=== PATIENT | male | born 1950 | race Caucasian/White ===

== ENCOUNTER 2022-08-10 13:35 | Outpatient (REF) | payer MEDICARE, SELFPAY ==
[2022-08-10 15:34] LABS: Abs Immature Grans 0.01 10^3/uL (0.0-0.06); Absolute Basophil Count 0.04 10^3/uL (0.0-0.2); Absolute Eosinophil Count 0.06 10^3/uL (0.0-0.7); Absolute Lymphocyte Count 1.19 10^3/uL (1.2-3.4); Absolute Monocyte Count 0.37 10^3/uL (0.1-0.8); Absolute Neutrophil Count 3.49 10^3/uL (1.2-6.7); Basophils % 0.8; Eosinophils % 1.2; HCT 37.4 % (40.0-50.0); HGB 12.3 g/dL (13.5-17.5); Immature Grans % 0.2; Lymphocytes % 23.1; MCH 31.6 pg (27.0-33.0); MCHC 32.9 % (32.0-36.0); MCV 96 fL (80-95); MPV 11.9 fL (8.0-11.0); Monocytes % 7.2; Neutrophils % 67.5; Platelet Count 124 10^3/uL (130-400); RBC 3.89 10^6/uL (4.36-5.78); RDW 12.3 % (11.8-14.1); RDW-SD 42.8 fL; WBC 5.16 10^3/uL (4.4-10.8)
[2022-08-10 15:47] LABS: ALT 20 U/L (16-63); AST 26 U/L (15-37); Albumin 4.1 g/dL (3.4-5.0); Alkaline Phosphatase 53 U/L (46-116); Anion Gap 9.3 mmol/L (3-11); BUN 25 mg/dL (7-18); Bilirubin, Total 0.5 mg/dL (0.2-1.0); CO2 26.7 mmol/L (21.0-32.0); CREATININE 1.7 mg/dL (0.70-1.30); Calcium 9.5 mg/dL (8.5-10.1); Chloride 106 mmol/L (98-107); Estimated GFR 42.57 (mL/min/1.73m2); Glucose 118 mg/dL (74-106); Potassium 4.1 mmol/L (3.5-5.1); Sodium 142 mmol/L (136-145); Total Protein 7.5 g/dL (6.4-8.2)
[2022-08-10 17:14] LABS: Bacteria Rare HPF (Negative); Epithelial Cells Few HPF (Negative)
[2022-08-10 17:15] LABS: C & S Indicated? C&S Done As Ordered; Crystals Negative HPF (Negative); Mucus Trace (Negative)
== END 2022-08-10 13:36 | disposition home or self-care (01) ==
LOC: LBN 13:35
PROVIDERS: PCP Internal Medicine; Visit Provider Nurse Practitioner Family
DX: R30.0 Dysuria (principal); R39.89 Other symptoms and signs involving the genitourinary system
CPT/HCPCS: 80053; 81015; 85025; 87086

== ENCOUNTER → 2022-08-11 07:46 | Outpatient (BNVA) | payer MEDICARE, SELFPAY | PROVIDERS: PCP Internal Medicine; Referring Provider Internal Medicine; Visit Provider Nurse Practitioner Gerontology | DX: Z46.6 Encounter for fitting and adjustment of urinary device (principal); R33.8 Other retention of urine | CPT/HCPCS: 51702; 99214 ==

== ENCOUNTER → 2022-08-23 07:55 | Outpatient (BNVA) | payer MEDICARE, SELFPAY | PROVIDERS: PCP Internal Medicine; Visit Provider Nurse Practitioner Gerontology | DX: R33.8 Other retention of urine (principal); Z46.6 Encounter for fitting and adjustment of urinary device; Z96.0 Presence of urogenital implants | CPT/HCPCS: 99213 ==

== ENCOUNTER → 2022-09-20 07:59 | Outpatient (BNVA) | payer MEDICARE, SELFPAY | PROVIDERS: PCP Internal Medicine; Visit Provider Nurse Practitioner Gerontology | DX: R33.8 Other retention of urine (principal) | CPT/HCPCS: 36415; 99212 ==

== ENCOUNTER 2022-09-20 14:29 | Outpatient (REF) | payer MEDICARE, SELFPAY ==
[2022-09-20 22:49] LABS: PSA, Diagnostic 7.1 ng/mL (<=6.5)
== END 2022-09-20 14:30 | disposition home or self-care (01) ==
LOC: LBN 14:29
PROVIDERS: PCP Internal Medicine; Visit Provider Nurse Practitioner Gerontology
DX: N40.1 Benign prostatic hyperplasia with lower urinary tract symptoms (principal); R33.8 Other retention of urine; N13.8 Other obstructive and reflux uropathy
CPT/HCPCS: 84153

== ENCOUNTER 2022-09-22 09:48 | Outpatient (CLI) | payer MEDICARE, SELFPAY ==
--- NOTE | 2022-09-22 07:00 | DI.US_ITS ---
Exam(s) US RENAL EXAM: US RENAL CLINICAL HISTORY: monitoring for hydro,ACUTE URINARY RETENTION,R33.8. TECHNIQUE: Griffin scale, color and spectral Doppler were used. COMPARISON: US RENAL ULTRASOUND (P) from 12/12/2009 FINDINGS: Renal size in cm: Right: 11.8. Left: 11.6. Echogenicity: Normal. Hydronephrosis: No. Cyst or mass: There has been interval increase in size of the simple cyst in the right kidney. It no w measures 4.6 x 3.2 x 4.5 cm. This compares to 3.2 x 2.8 cm. There is also been interval increase in size of the cysts in the left kidney. There is a 1.8 x 1.6 x 1.6 cm simple superior pole cyst. T here is a 3.2 x 2.5 x 2.8 cm simple cyst in the lower pole. No follow-up is recommended. Nephrolithiasis: No. Other findings: None. Bladder:There is diffuse thickening of the wall of the urinary bladder up to 7.5 mm. There are multi ple bladder diverticula seen. There also mobile stones seen within the urinary bladder. Ureteral jets: Right: Not visualized on this examination. Left: Not visualized on this examination. Prevoid vol:207 cc Postvoid vol:The patient perform self catheterization. Prostate: 132 cc Renal color flow: Symmetric and within normal limits. IMPRESSION: 1. Diffuse thickening of the wall and diverticula of the urinary bladder. This likely is secondary t o chronic bladder outlet obstruction secondary to the enlarged prostate gland. Infectious or inflamm atory process cannot be entirely excluded. 2. Enlarged prostate gland. 3. Bilateral simple renal cysts. 4. Multiple urinary bladder stones. DATA REPOSITORY:
== END 2022-09-22 10:08 ==
LOC: DI 09:48
PROVIDERS: PCP Internal Medicine; Visit Provider Nurse Practitioner Gerontology
DX: R33.8 Other retention of urine (principal); N28.1 Cyst of kidney, acquired; N32.89 Other specified disorders of bladder; N32.3 Diverticulum of bladder; N21.0 Calculus in bladder; N40.1 Benign prostatic hyperplasia with lower urinary tract symptoms
CPT/HCPCS: 76770

== ENCOUNTER → 2022-09-23 08:37 | Outpatient (BNVA) | payer MEDICARE, SELFPAY | PROVIDERS: PCP Internal Medicine; Referring Provider Internal Medicine; Visit Provider Nurse Practitioner Gerontology | DX: R33.8 Other retention of urine (principal); R97.20 Elevated prostate specific antigen [PSA] | CPT/HCPCS: 36415; 99214 ==

== ENCOUNTER 2022-09-23 09:07 | Outpatient (REF) | payer MEDICARE, SELFPAY ==
[2022-09-23 11:49] LABS: CREATININE 1.3 mg/dL (0.70-1.30); Estimated GFR 58.73 (mL/min/1.73m2)
== END 2022-09-23 09:08 | disposition home or self-care (01) ==
LOC: LBN 09:07
PROVIDERS: PCP Internal Medicine; Visit Provider Nurse Practitioner Gerontology
DX: R33.8 Other retention of urine (principal); R97.20 Elevated prostate specific antigen [PSA]
CPT/HCPCS: 82565

== ENCOUNTER → 2022-10-05 08:18 | Outpatient (BNVA) | payer MEDICARE, SELFPAY | PROVIDERS: PCP Internal Medicine; Referring Provider Internal Medicine; Visit Provider Nurse Practitioner Gerontology ==

== ENCOUNTER 2022-10-05 09:16 | Outpatient (CLI) | payer MEDICARE, SELFPAY ==
--- NOTE | 2022-10-05 08:45 | DI.US_ITS ---
Exam(s) US SCROTUM EXAM: US SCROTUM CLINICAL HISTORY: Pain,mass to left testicle,acute urinary retention,n50.819,r33.8,r97.20,. TECHNIQUE: Scrotal ultrasound performed using grayscale, color-flow and spectral Doppler analysis. COMPARISON: US RENAL ULTRASOUND (P) from 12/12/2009 FINDINGS: Right testicle: 3.5 by 1.7 x 2.4 cm Left testicle: 3.3 x 1.8 x 3.0 cm Echogenicity: Normal. Contour: Smooth. Mass: None seen. Microlithiasis: None. Hydrocele: None. Varicocele: None. Hernia: No peristalsing bowel loop identified. Epididymis: Head normal bilaterally. Prominence of soft tissues inferior to left testicle with prominent vessels and hyperemia. This cou ld represent focal epididymitis of the tail. No suspicious mass. DOPPLER: Color: Symmetric and uniform, no hyperemia. Duplex: Bilateral testicular arterial waveforms visualized. IMPRESSION: Asymmetric prominence of soft tissues inferior to the left testicle could represent focal lytic epidi dymitis involving the tail. No suspicious mass. No evidence of torsion. DATA REPOSITORY:
== END 2022-10-05 09:36 ==
LOC: DI 09:16
PROVIDERS: PCP Internal Medicine; Visit Provider Nurse Practitioner Gerontology
DX: N50.812 Left testicular pain (principal); R33.8 Other retention of urine; R97.20 Elevated prostate specific antigen [PSA]; N50.89 Other specified disorders of the male genital organs
CPT/HCPCS: 81003; 99214; 76870

== ENCOUNTER 2022-10-05 10:46 | Outpatient (REF) | payer MEDICARE, SELFPAY | END 2022-10-05 10:47 | disposition home or self-care (01) | LOC: LBN 10:46 | PROVIDERS: PCP Internal Medicine; Visit Provider Nurse Practitioner Gerontology | DX: R30.0 Dysuria (principal); R33.8 Other retention of urine; N50.89 Other specified disorders of the male genital organs | CPT/HCPCS: 87077; 87086; 87186 ==

== ENCOUNTER → 2022-11-30 08:57 | Outpatient (BNVA) | payer SELFPAY | PROVIDERS: PCP Internal Medicine; Referring Provider Internal Medicine; Visit Provider Nurse Practitioner Gerontology ==

== ENCOUNTER 2023-02-17 08:54 | Day surgery (SDC) | payer MEDICARE, SELFPAY ==
[2023-02-17] VITALS (11 sets, daily range): BP systolic 82–122; BP diastolic 46–92; PULSE 42–63; RESP 12–26; TEMP 36.2–36.4; O2SAT 98–100; BMI 22.4
[2023-02-17] MEDS: Lactated Ringers 1,000 ML 80 ML IV (09:33)
--- NOTE | 2023-02-17 10:46 | W.ANESPRE ---
General Info Date of Service Date Performed: 02/17/23 Height: 5 ft 9 in Weight: 69.1 kg Body Mass Index (BMI): 22.4 Surgical Procedure: Operation Date: 02/17/23 11:40 Proposed Procedure Side Surgeon p Cystoscopy w/Bladder Stones Removal Homero Connors MD Meds Allergies and Home Medications Allergies Allergy/AdvReac Type Severity Reaction Status Date / Time No Known Allergies Allergy Verified 02/17/23 09:14 Home Medication Medication Instructions Recorded tamsulosin 0.4 mg capsule (Flomax) 0.8 mg PO DAILY #180 caps 08/23/22 Current Visit Medications: Current Medications Generic Name Dose Route Start Last Admin Trade Name Freq PRN Reason Stop Dose Admin Ringer's Solution 1,000 mls @ 80 mls/hr 02/17/23 06:00 02/17/23 09:33 IV 03/18/23 23:59 80 mls/hr INFUSION LYLA Administration Cefazolin Sodium/Dextrose 2 gm in 50 mls @ 100 mls/hr 02/17/23 06:00 Ancef Duplex IVPB 02/17/23 16:00 PREOP LYLA IV Miscellaneous Supplies 1 each 02/17/23 06:00 Iv Access IV 03/18/23 23:59 DIRECTED LYLA Sodium Chloride 0 ml 02/17/23 06:00 Normal Saline Flush 10 Ml Syr IV 03/18/23 23:59 PRN PRN Sodium Chloride 0 ml 02/17/23 06:00 Normal Saline 10 Ml Vial IJ 03/18/23 23:59 DIRECTED PRN Sterile Water 0 ml 02/17/23 06:00 Water,Injection,Sterile 10 Ml Vial IJ 03/18/23 23:59 DIRECTED PRN PFSH Active Problems Active Problems: Problem Status Onset Code Acute urinary retention R33.8 Elevated PSA R97.20 Surgical History Surgical History Hx of endoscopy Tobacco Smoking/Tobacco Use Status: Former Tobacco Use Alcohol Alcohol Intake: former Substance Use Substance use: Never Substance use type: does not use Vital Signs and Lab Results Vital Signs Most Recent Vital Signs in EMR: Most Recent Vital Signs Temp Pulse Resp BP Pulse Ox 36.3 C L 63 16 116/63 99 02/17/23 09:11 02/17/23 09:11 02/17/23 09:11 02/17/23 09:11 02/17/23 09:11 Lab Results Blood Type / Crossmatch: No Data to Display Complete Blood Count: No Data to Display Complete Metabolic Panel: No Data to Display Liver Function Panel: No Data to Display Coagulation Panel: No Data to Display Cardiac Panel: No Data to Display Arterial Blood Gas: No Data to Display Venous Blood Gas: No Data to Display Pancreas Panel: No Data to Display Thyroid Panel: No Data to Display Infectious Disease: No Data to Display Blood Cultures: No Data to Display Toxicology Panel: No Data to Display Anesthesia Assessment and Plan Anesthesia History Personal History: No History of Anesthesia Complications Family History: No Family History of Anesthesia Complications Exercise Tolerance Exercise Tolerance: Metabolic Equivalents>4 Pertinent Negatives Pertinent Negatives: No Major Cardiovascular Symptoms or Complaints, No Major Pulmonary Symptoms or Complaints and No History of CVA/TIA Cardiac & Pulmonary Exam Cardiac Exam: Normal S1/S2 Heart Sounds Pulmonary Exam: Clear Bilateral Breath Sounds Implantable Cardiac Device Does patient have a Pacemaker or an ICD?: No Airway Exam Known Difficult Airway: No Mallampati Class: 2 Mouth Opening: Normal (> 3cm) Thyromental Distance: Greater than 3 cm Neck Range of Motion: Full ROM Neck Circumference: Normal Teeth Condition: Normal Dentition ASA Classification ASA Score: ASA 2 Emergency Case?: No NPO Status NPO Status: NPO Clears >2 hours, Solids >8 hours Anesthesia Plan Resuscitation Status: Full Code Anesthesia Technique: General Anesthesia Airway Planned: Natural Airway Monitors Used: Standard Monitors
--- NOTE | 2023-02-17 10:49 | W.PM.HP.N ---
Date of service: 02/17/23 Time of Service: 10:49 Assessment and Plan Assessment and plan (1) Bladder stones: Status: Acute Assessment and plan: For cystoscopy with holmium laser lithotripsy of bladder stones and stone evacuation. Given the number of stones present, we will likely need to leave an indwelling catheter in place after the procedure. History of Present Illness History of Present Illness Chief Complaint: Bladder stones Narrative: This is a 72-year-old gentleman who developed urinary retention. He has been performing clean intermittent catheterization but has seen gross hematuria at times. He was identified as having an elevated PSA so he was evaluated with a multiparameter prostate MRI. There was a low likelihood of clinically significant prostate cancer, but there are multiple large bladder stones present. He presents now for cystoscopy with holmium laser lithotripsy of his bladder stones. Review of Systems Narrative: No fevers or chills No vision change or dysphasia No diabetes or thyroid No shortness of breath, cough or hemoptysis No chest pain or palpitations No nausea, vomiting, hepatitis, ulcers, jaundice, diarrhea or constipation No seizures, strokes or peripheral neuropathy No bleeding disorders or anemia No gout PFSH All Active Problems (Updated 02/17/23 @ 11:46 by Homero Connors MD) Bladder stones (Acute) Acute urinary retention (Acute) Elevated PSA (Acute) Surgical History Hx of endoscopy Social History Smoking/Tobacco Use Status: Former Tobacco Use Quit Date: 07/04/99 Smoking risk assessment performed?: Yes Alcohol Intake: former Drug use: Never Substance use type: does not use Housing: house Do you feel safe at home: Yes Do you feel safe in your relationship?: Yes Meds Allergies and Home Medications Allergies Allergy/AdvReac Type Severity Reaction Status Date / Time No Known Allergies Allergy Verified 02/17/23 09:14 Home Medications Medication Instructions Recorded Confirmed Type tamsulosin 0.4 mg capsule (Flomax) 0.8 mg PO DAILY #180 caps 08/23/22 02/17/23 Rx Exam Const General: cooperative Neck Neck: supple Resp Effort & Inspection: normal respiratory effort Auscultation: clear to auscultation bilaterally Cardio Rate: regular rate Rhythm: regular rhythm GI Palpation: soft and no masses Neuro General: patient alert, patient awake and patient oriented x3 Results Last Vital Signs Temp 36.3 C L 02/17/23 09:11 Pulse 63 02/17/23 09:11 Resp 16 02/17/23 09:11 BP 116/63 02/17/23 09:11 Pulse Ox 99 02/17/23 09:11 Time Spent Time spent with Patient: <40 minutes Time was spent: other
[2023-02-17] MEDS: ceFAZolin 2 GM/50 ML BAG IVPB (12:30)
--- NOTE | 2023-02-17 14:56 | W.PM.DSUDISC ---
Date of service: 02/17/23 Time of Service: 14:56 Discharge Plan Disposition Condition: Stable Discharge Details Attending Provider: Homero Connors Primary Care Provider: Jaiden Portillo Home Meds and New Rx's Prescriptions: No Action tamsulosin [Flomax] 0.4 mg capsule 0.8 mg PO DAILY Qty: 180 3RF Discharge Instructions Additional Instructions: mortensen to drainage bag - catheter plug to irrigation port my office will contact pt to arrange for repeat cystoscopy, remove residual stone fragments in OR Activity:: Activity as Tolerated Shower/Bathe:: 24 hours Diet:: As Tolerated DS: Diagnosis Discharge Diagnosis (1) Bladder stones: Status: Acute
--- NOTE | 2023-02-17 15:17 | W.PM.OP ---
Date of service: 02/17/23 Time of Service: 15:17 Operative Note Operative Note DATE OF PROCEDURE: 02/17/23 PRE-OP DIAGNOSIS: Bladder stones POST-OP DIAGNOSIS: same PROCEDURE: Cystoscopy, Holmium laser lithotripsy of bladder stones, extraction of bladder stones SURGEON: Homero Connors ANESTHESIA TYPE: General:No Airway Refer to Anesthesia Record ESTIMATED BLOOD LOSS: 100 PATHOLOGY: other (stones for chemical analysis) COMPLICATIONS: None Patient was transported to: PACU Patient's condition: stable Implants: 22 [place] Coude tipped irrigating catheter with 10 cc sterile water in balloon Indications: This is a 72-year-old gentleman who has a history of urinary retention. He performs clean intermittent catheterization. He has had occasional episodes of gross hematuria after catheterization. He has had a renal ultrasound that showed no sign of upper tract disease, but he had multiple large bladder stones. He has been found to have a elevated PSA. He underwent a multiparameter prostate MRI which showed the likelihood of clinically significant prostate cancer was quite low. He presents now for cystoscopy and holmium laser lithotripsy of his bladder stones. Findings: Multiple large bladder stones Bladder heavily trabeculated with multiple diverticuli Procedure Description: The patient was given preoperative IV antibiotics. After successful induction of general anesthesia, he was placed in the dorsal lithotomy position. His genitalia was prepped and draped. 2% Xylocaine jelly was instilled into the urethra to act as a local anesthetic. 22 [place] rigid cystoscope was passed through the urethra into the bladder. The urethra and bladder were inspected with a 30 degree lens. The pendulous, bulbar and membranous urethra was all appeared normal with no strictures. The prostatic urethra showed trilobar enlargement with a moderate median lobe jetting back into the bladder. Once the bladder neck was entered, we are able to see that the bladder was heavily trabeculated there were multiple diverticuli. At the base of the bladder, there were multiple (between 6 and 12) large bladder stones. The stones were larger than the lumen of the cystoscope. We then began treating the stones with a 972 ?m holmium laser fiber. We used a power setting of of 0.8 and a rate of 8. The stones were quite hard to fragment. As the fragmentation occurred, visibility became more difficult. We were able to extract multiple stone fragments and these fragments were sent to pathology for chemical analysis. Multiple additional fragments still remain in the bladder. Because visibility was poor toward the end of the procedure, we elected to stop the procedure, place a Schwartz catheter and make a planned return to the operating room once the edema has subsided. I would expect that the procedure coul be done after a waiting period of 1 to 4 weeks. We filled the bladder with irrigant and removed the cystoscope. We then passed a 22 [place]ian hematuria catheter down through the urethra into the bladder. The catheter balloon was inflated with 10 cc of sterile water. The catheter was hooked to gravity drainage. Continuous bladder irrigation with saline was then begun. The patient tolerated this procedure well with no complications. He was taken to the recovery room in stable condition.
[2023-02-17] MEDS: fentaNYL 100 MCG/2 ML VIAL IVP (16:06)
--- NOTE | 2023-02-17 16:36 | W.ANESPOSTOP ---
Postoperative Evaluation Date, Time and Location Date Performed: 02/17/23 Time Performed: 16:37 Patient Location: Day Surgery Unit Vital Signs Most Recent Imported Vital Signs: Most Recent Vital Signs Temp Pulse Resp BP Pulse Ox 36.2 C L 47 L 26 H 110/92 H 100 02/17/23 16:15 02/17/23 16:15 02/17/23 16:15 02/17/23 16:15 02/17/23 16:15 Pain Score Most Recent Pain Score: Most Recent Pain Score Pain Level 4 02/17/23 16:37 Assessment Mental Status: Awake (Alert & Oriented to Patient Baseline) Airway and Respiratory Function: Patent airway with normal (patient baseline) respiratory exam Cardiovascular Function: Hemodynamically Stable Hydration Status: Adequately Hydrated Nausea & Vomiting: No Nausea or Vomiting Pain: Pain is tolerable per patient Peripheral Nerve Block: Patient did not receive a nerve block Postoperative Comments:: Pt. awake and doing well. Very communicative and calm.
[2023-02-17] MEDS: traMADol 50 MG TAB PO (16:51)
== END 2023-02-17 18:05 | disposition home or self-care (01) ==
PROVIDERS: PCP Internal Medicine; Visit Provider Urology
PROC: 0TJB8ZZ Inspection of Bladder, Via Natural or Artificial Opening Endoscopic (ICD-10-PCS; CPT 52000; principal; 2023-02-17 11:30)
DX: N21.0 Calculus in bladder (principal); R31.0 Gross hematuria; R33.9 Retention of urine, unspecified
CPT/HCPCS: 52318; 82365; J0690; J1100; J1885; J2001; J2405; J2704; J3010

== ENCOUNTER 2023-02-23 21:34 | Emergency (ER) | payer MEDICARE, SELFPAY ==
[2023-02-23] VITALS (74 sets, daily range): BP systolic 55–131; BP diastolic 35–100; PULSE 79–113; RESP 12–31; TEMP 36.8; O2SAT 93–100
--- NOTE | 2023-02-23 21:45 | DI.CT_ITS ---
Exam(s) CT ABDOMEN PELVIS WO EXAM: CT ABDOMEN PELVIS WO CLINICAL HISTORY: s/p lithotripsy, hematuria, dysuria. TECHNIQUE: Imaging Protocol: Axial computed tomography images with coronal and sagittal reformatted images were created and reviewed CONTRAST MATERIAL: Intravenous: none Oral: None COMPARISON: No exams were available for comparison FINDINGS: VISUALIZED LUNG BASES: No nodules nor pleural effusions evident. Small pericardial effusion. ABDOMEN: There is no ascites. LIVER: There are no obvious focal hepatic lesions evident of this noninfused study. GALLBLADDER/BILIARY: No obvious gallbladder pathology. CBD is not dilated. PANCREAS: No evidence of pancreatic mass nor dilatation of the pancreatic duct. SPLEEN: Spleen is not enlarged. No obvious intrasplenic lesions. ADRENALS: There are no significant adrenal masses. KIDNEYS:There is a 4.2 x 3.7 cm benign cyst in the right kidney. No solid renal masses. No calculi n or hydronephrosis the right-side.. Left kidney is significantly hydronephrotic the left ureter is al so dilated. Debris evident in the distal left ureter. Also abundant abnormality in the urinary blad chiquis. There is a Schwartz catheter in place but this is not in the urinary bladder and is instead in the prostatic urethra. There is abundant clot material in the urinary bladder lumen as well as innumera ble calculi in the urinary bladder. ABDOMINAL AORTA: Abdominal aorta is calcified but not enlarged. LYMPH NODES: There is no retroperitoneal nor paraaortic adenopathy. ABDOMINAL WALL: Fat containing left inguinal hernia. GI: There is no evidence of bowel obstruction, free air, nor abscess. PELVIS: LYMPH NODES: There is no intrapelvic nor inguinal adenopathy. GI: No evidence of appendicitis.Left colon and sigmoid diverticuli but no obvious acute diverticuliti s. URINARY BLADDER: Abnormal as above. REPRODUCTIVE: Significantly enlarged prostate gland. A catheter balloon is inflated within the prost atic urethra. OSSEOUS: No significant osseous lesions. Benign intraosseous hemangioma is noted in the right-side o f the L3 vertebral body. No fractures IMPRESSION: 1. The Schwartz catheter including the inflated Schwartz catheter balloon is in the prostatic urethra. The balloon should be deflated and the catheter repositioned into the urinary bladder. 2. There are numerous calculi of different sizes in the urinary bladder lumen as well as large amount of blood and clot material in the urinary bladder (cannot exclude mass). 3. Moderate-severe left-sided hydronephrosis and hydroureter which is related to the above findings. Also calculi in the left kidney. Schwartz catheter needs repositioning. RADIATION DOSE DELIVERED: 581.79mGy.cm Total DLP DATA REPOSITORY: All CT scans at this facility are submitted to the National Radiology Data Registry (NRDR) Dose Index Registry (DIR) with the [employer] ([employer]). RADIATION OPTIMIZATION: All CT scans at this facility use at least one of these dose optimization te chniques: automated exposure control; mA and/or kV adjustment per patient size (includes targeted exa ms where dose is matched to clinical indication); or iterative reconstruction.
--- NOTE | 2023-02-23 22:10 | DI.RAD_ITS ---
Exam(s) XR CHEST 1V IN DI DEPT EXAM: XR CHEST 1V IN DI DEPT CLINICAL HISTORY: hypotension. TECHNIQUE: 2D digital imaging was performed. COMPARISON: No exams were available for comparison FINDINGS: Single AP portable view. Heart size is upper normal. The mediastinum is not widened. There are no infiltrates nor pleural effusions. However, there is possible area of pneumothorax righ t upper lobe region. This may indeed be artifact. IMPRESSION: Possible right-side pneumothorax. Recommend nonportable PA and lateral views when clinically possibl e. First read by [facility]. Final report called by myself to emergency room 02/24/2023 8:45 a.m. DATA REPOSITORY: RADIATION DOSE DELIVERED:
[2023-02-23 22:31] LABS: Abs Immature Grans 0.03 10^3/uL (0.0-0.06); Absolute Basophil Count 0.02 10^3/uL (0.0-0.2); Absolute Eosinophil Count 0.03 10^3/uL (0.0-0.7); Absolute Lymphocyte Count 0.83 10^3/uL (1.2-3.4); Absolute Monocyte Count 0.42 10^3/uL (0.1-0.8); Absolute Neutrophil Count 6.17 10^3/uL (1.2-6.7); Basophils % 0.3; Eosinophils % 0.4; HCT 24.8 % (40.0-50.0); Immature Grans % 0.4; Lymphocytes % 11.1; MCH 30.3 pg (27.0-33.0); MCHC 32.3 % (32.0-36.0); MCV 94 fL (80-95); MPV 11.1 fL (8.0-11.0); Monocytes % 5.6; Neutrophils % 82.2; Platelet Count 156 10^3/uL (130-400); RBC 2.64 10^6/uL (4.36-5.78); RDW-SD 44.6 fL
[2023-02-23 22:34] LABS: Lactate 2.4 mmol/L (0.6-1.4)
--- NOTE | 2023-02-23 22:44 | DI.VRAD_ITS ---
PROCEDURE INFORMATION: Exam: XR Chest Exam date and time: 02/23/2023 10:27 PM Age: 72 years old Clinical indication: Other: Hypotension TECHNIQUE: Imaging protocol: Radiologic exam of the chest. Views: 1 view. COMPARISON: CT ABDOMEN PELVIS WO 02/23/2023 10:21 PM FINDINGS: Lungs: Unremarkable. No consolidation. Pleural spaces: Unremarkable. No pleural effusion. No pneumothorax. Heart/Mediastinum: Mildly tortuous aorta. No cardiomegaly. Bones/joints: Unremarkable. IMPRESSION: No acute findings. Dictated and Authenticated by: Junior Martin MD. Ordering:AMAYA Hester MD
--- NOTE | 2023-02-23 22:46 | DI.VRAD_ITS ---
PROCEDURE INFORMATION: Exam: CT Abdomen And Pelvis Without Contrast Exam date and time: 02/23/2023 10:21 PM Age: 72 years old Clinical indication: Other: S/P lithotripsy, hematuria, dysuria TECHNIQUE: Imaging protocol: Computed tomography of the abdomen and pelvis without contrast. COMPARISON: US SCROTUM 10/05/2022 9:29 AM FINDINGS: Liver: Normal. No mass. Gallbladder and bile ducts: Normal. No calcified stones. No ductal dilation. Pancreas: Normal. No ductal dilation. Spleen: Normal. No splenomegaly. Adrenal glands: Normal. No mass. Kidneys and ureters: Moderate to severe left hydroureteronephrosis. Calcified stone versus vascular calcification image 15 series 2 measuring 7-8 mm. There is debris versus blood layering in the left renal collecting system/pelvis. Right renal simple cysts noted Stomach and bowel: No obstruction. No mucosal thickening. Colonic diverticulosis Appendix: No evidence of appendicitis. Intraperitoneal space: Unremarkable. No free air. No significant fluid collection. Vasculature: Unremarkable. No abdominal aortic aneurysm. Lymph nodes: Unremarkable. No enlarged lymph nodes. Urinary bladder: Schwartz catheter with tip in the bladder. Schwartz catheter balloon projects into the posterior/prostatic urethra Large amount of blood/debris in the bladder and large calcified stones measuring up to 2 cm. Distal right UVJ calculus projecting into the bladder measuring 6 mm Reproductive: Severely enlarged prostate. Bones/joints: Hemangioma at L3. Degenerative changes in the spine No acute fracture. Soft tissues: Unremarkable. IMPRESSION: Schwartz catheter with balloon inflated in the prostatic urethra. Recommend repositioning Large amount of blood and large calculi in the bladder as described. Distal right UVJ calculus as noted Moderate to severe left hydroureteronephrosis and left sided debris/calculi as noted Dictated and Authenticated by: Junior Martin MD. Ordering:AMAYA Hester MD
[2023-02-23 23:08] LABS: ALT 6 U/L (16-63); AST 18 U/L (15-37); Albumin 2.6 g/dL (3.4-5.0); Alkaline Phosphatase 48 U/L (46-116); Anion Gap 7.3 mmol/L (3-11); BUN 29 mg/dL (7-18); Bilirubin, Total 0.3 mg/dL (0.2-1.0); CO2 20.7 mmol/L (21.0-32.0); CREATININE 1.4 mg/dL (0.70-1.30); Calcium 7.9 mg/dL (8.5-10.1); Chloride 106 mmol/L (98-107); Glucose 171 mg/dL (74-106); Potassium 4.2 mmol/L (3.5-5.1); Sodium 134 mmol/L (136-145); Total Protein 5.7 g/dL (6.4-8.2)
[2023-02-23 23:10] LABS: Abs Immature Grans 0.03 10^3/uL (0.0-0.06); Absolute Basophil Count 0.03 10^3/uL (0.0-0.2); Absolute Eosinophil Count 0.01 10^3/uL (0.0-0.7); Absolute Monocyte Count 0.43 10^3/uL (0.1-0.8); Basophils % 0.3; Eosinophils % 0.1; HCT 24.1 % (40.0-50.0); HGB 7.9 g/dL (13.5-17.5); Immature Grans % 0.3; Lymphocytes % 10.5; MCH 30.6 pg (27.0-33.0); MCHC 32.8 % (32.0-36.0); MCV 93 fL (80-95); MPV 10.4 fL (8.0-11.0); Monocytes % 4.1; Neutrophils % 84.7; Platelet Count 156 10^3/uL (130-400); RBC 2.58 10^6/uL (4.36-5.78); RDW 12.9 % (11.8-14.1); RDW-SD 44.2 fL
[2023-02-23] MEDS: PIPERACILLIN/TAZO 3.375 GM in Normal Saline 50 ML IVPB (23:13)
[2023-02-23 23:16] LABS: Procalcitonin < 0.1 ng/mL
--- NOTE | 2023-02-23 23:22 | ED.GENADUL_ITS ---
Discharge Plan Disposition Patient Disposition: Transfer-Acute Inpatient Care Specific Acute Inpt Facility: [facility] Discharge Details Clinical Impression: Acute blood loss anemia, Bladder stones, Shock Primary Care Provider: Jaiden Portillo ED Provider: Hemanth Arriaga Home Meds and New Rx's Prescriptions: No Action tamsulosin [Flomax] 0.4 mg capsule 0.8 mg PO DAILY Qty: 180 3RF Discharge Data Discharge Date/Time-TO BE ENTERED AT DEPARTURE: 02/24/23 01:41 Medical Decision Making <OLEKSANDR Parisi - Last Filed: 02/26/23 18:43> Patient is alert and oriented, he received 1500 cc of NS secondary to a reported blood pressure of 70/40 in the field, will hold additional fluids He is not anticoagulated He is complaining of some suprapubic pressure and gross hematuria afebrile here, his blood pressure is 95/45 on initial assessment Hemoglobin is 8, decreased from 12, blood pressure is maintaining and repeat CBC does not show significant change, 7.9, lactate 2.4 We will continue to monitor vitals and labs and hold blood products at this time I suspect patient has a urinary tract infection and ordered CT scan to evaluate for obstruction, patient has large amount of blood and large calculi in his bladder, he has a distal right UVJ calculus and moderate to severe left hydro ureteral nephrosis and left-sided debris and calculus noted per radiology interpretation and my review I spoke with Dr. Connors who recommends if patient's urine is infected to be transferred to [facility], holding on blood products at this time as patient's blood pressure has been stable His lactate is elevated, I did review his last urinalysis and he is positive for staph so will initiate Zosyn He would likely need transfer for urology intervention and Dr. Connors indicates the likely will need a percutaneous nephrostomy secondary to bladder anatomy 3 way mortensen was replaced, zosyn initated, telemetry no leukocytosis, mild hyponatremia, creatinine 1.4 not significantly changed mild hyperglycemia, no documented hx of diabetes tx of care to Dr Arriaga pending urinalysis and likely transfer <Hemanth Arriaga DO - Last Filed: 02/24/23 01:06> Patient is alert and oriented, he received 1500 cc of NS secondary to a reported blood pressure of 70/40 in the field, will hold additional fluids He is not anticoagulated He is complaining of some suprapubic pressure and gross hematuria afebrile here, his blood pressure is 95/45 on initial assessment Hemoglobin is 8, decreased from 12, blood pressure is maintaining and repeat CBC does not show significant change, 7.9, lactate 2.4 We will continue to monitor vitals and labs and hold blood products at this time I suspect patient has a urinary tract infection and ordered CT scan to evaluate for obstruction, patient has large amount of blood and large calculi in his bladder, he has a distal right UVJ calculus and moderate to severe left hydro ureteral nephrosis and left-sided debris and calculus noted per radiology interpretation and my review I spoke with Dr. Connors who recommends if patient's urine is infected to be transferred to [facility], holding on blood products at this time as patient's blood pressure has been stable His lactate is elevated, I did review his last urinalysis and he is positive for staph so will initiate Zosyn He would likely need transfer for urology intervention and Dr. Connors indicates the likely will need a percutaneous nephrostomy secondary to bladder anatomy 3 way mortensen was replaced, zosyn initated, telemetry no leukocytosis, mild hyponatremia, creatinine 1.4 not significantly changed mild hyperglycemia, no documented hx of diabetes tx of care to Dr Arriaga pending urinalysis and likely transfer Dr. Arriaga's documentation: 1:03 AM Patient was signed out to me by my colleague OLEKSANDR Parisi, please refer to her HPI, physical exam, assessment and plan. At time of signout we are awaiting urinalysis. Upon my reassessment of the patient prior to urinalysis he was demonstrated to have a blood pressure in the high 80s to low 90s. Decision was made to give additional fluid for total of 2 L of normal saline. With the notable stones, hydroureter, hydronephrosis, low blood pressure, and a normal procalcitonin and no white count or fever, I am concerned that symptoms may be secondary to blood loss anemia. Hemoglobin is 7.9, patient's baseline is 12. Order was placed for [address] Connors had already been contacted and recommended transfer to [facility] for nephrostomy tube. I did speak with urology at [facility] and they agree with the plan, and also do recommend continued blood and fluids to manage pressure. I did speak with the ICU Dr. Sandoval, and she agrees to accept the patient for transfer. At time of transfer blood had been started and blood pressure was 100 systolic. Decision was made to hold off on any pressors as blood was beginning to transfuse and pressure had stabilized. Patient had already been given Zosyn for antibacterial coverage. At time of transfer urinalysis did return and shows evidence of just RBCs, no evidence of leuk esterase or nitrates. Patient will be transferred to [facility]. I have extensively reviewed the treatment plan with the patient. I have addressed all patient concerns at this time. I have also discussed the plan with the admitting physician and they agree with the current assessment and plan and have agreed to assume responsibility for the patient. All parties demonstrate verbal understanding and agreement with our assessment and plan at this time. The documentation in this chart was dictated using [employer] dictation software. Please excuse any dictation errors. At time of transfer the patient was reassessed and continued to demonstrate No signs of acute respiratory distress requiring intubation, or rapidly declining mental status. HPI <OLEKSANDR Parisi - Last Filed: 02/26/23 18:43> General Date/Time Provider Initiated Documentation: 02/23/23 21:36 . HPI Narrative: This 72-year-old male presents with report of feeling weak and having blood in his urine with decreased flow from his Mortensen catheter. He is status post lithotripsy on 17 February and had a three-way Mortensen placed at that time, residual large stones per Dr. Connors's note. Patient is not anticoagulated. He states that he has had some suprapubic pressure. He denies any fever but has had chills. He denies any chest pain or shortness of breath. He presents today secondary to blood in his urine and weakness with chills. Has not taken Tylenol since 12:00 today. Related Data Home Medications Medication Instructions Recorded Confirmed tamsulosin 0.4 mg capsule (Flomax) 0.8 mg PO DAILY #180 caps 08/23/22 02/24/23 Previous Rx's Medication Instructions Recorded tamsulosin 0.4 mg capsule (Flomax) 0.8 mg PO DAILY #180 caps 08/23/22 Allergies Allergy/AdvReac Type Severity Reaction Status Date / Time No Known Allergies Allergy Verified 02/17/23 09:14 General Stated Complaint: Urinary YA: 3 PFSH <OLEKSANDR Parisi - Last Filed: 02/26/23 18:43> All Active Problems (Updated 02/24/23 @ 01:06 by Hemanth Arriaga DO) Acute blood loss anemia (Acute) Shock (Acute) Bladder stones (Acute) Acute urinary retention (Acute) Elevated PSA (Acute) Surgical History Hx of endoscopy Social History Smoking/Tobacco Use Status: Former Tobacco Use Quit Date: 07/04/99 Smoking risk assessment performed?: Yes Alcohol Intake: former Drug use: Never Substance use type: does not use Housing: house Do you feel safe at home: Yes Do you feel safe in your relationship?: Yes Course <OLEKSANDR Parisi - Last Filed: 02/26/23 18:43> Vital Signs Vital signs: Vital Signs Pulse 87 02/23/23 21:23 Respiratory Rate 18 02/23/23 21:23 Blood Pressure 95/49 L 02/23/23 21:23 Pulse Oximetry 99 02/23/23 21:23 Temperature 36.8 C 02/23/23 22:52 Temperature Source Tympanic 02/23/23 22:52 Pulse 85 02/23/23 22:49 Respiratory Rate 18 02/23/23 22:50 Blood Pressure 100/50 L 02/23/23 22:49 Pulse Oximetry 95 02/23/23 22:12 Oxygen Delivery Method Room Air 02/23/23 21:23 Oxygen Flow Rate 0 02/23/23 21:23 Lab/Test Results Lab/Test Results: 02/23/23 22:10 Blood Blood Culture - Pending 02/23/23 22:10 Blood Blood Culture - Pending Laboratory Tests Range/Units 02/23/23 02/23/23 02/23/23 22:10 22:10 22:10 WBC (4.4-10.8) 10^3/uL 7.50 RBC (4.36-5.78) 10^6/uL 2.64 L Hgb (13.5-17.5) g/dL 8.0 L Hct (40.0-50.0) % 24.8 L MCV (80-95) fL 94 MCH (27.0-33.0) pg 30.3 MCHC (32.0-36.0) % 32.3 RDW (11.8-14.1) % 13.0 Plt Count (130-400) 10^3/uL 156 MPV (8.0-11.0) fL 11.1 H Immature Gran % 0.4 Neutrophils % 82.2 Lymphocytes % 11.1 Monocytes % 5.6 Eosinophils % 0.4 Basophils % 0.3 Nucleated RBC % (0.0-0.3) % 0.0 Absolute Neutrophils (1.2-6.7) 10^3/uL 6.17 Absolute Lymphocytes (1.2-3.4) 10^3/uL 0.83 L Absolute Monocytes (0.1-0.8) 10^3/uL 0.42 Absolute Eosinophils (0.0-0.7) 10^3/uL 0.03 Absolute Basophils (0.0-0.2) 10^3/uL 0.02 VBG Lactate (0.6-1.4) mmol/L 2.4 H* Sodium (136-145) mmol/L 134 L Potassium (3.5-5.1) mmol/L 4.2 Chloride (98-107) mmol/L 106 Carbon Dioxide (21.0-32.0) mmol/L 20.7 L Anion Gap (3-11) mmol/L 7.3 BUN (7-18) mg/dL 29 H Creatinine (0.70-1.30) mg/dL 1.4 H Est GFR (CKD-EPI 2020) (mL/min/1.73m2) 53.40 Glucose (74-106) mg/dL 171 H Calcium (8.5-10.1) mg/dL 7.9 L Total Bilirubin (0.2-1.0) mg/dL 0.3 AST (15-37) U/L 18 ALT (16-63) U/L 6 L Alkaline Phosphatase (46-116) U/L 48 Total Protein (6.4-8.2) g/dL 5.7 L Albumin (3.4-5.0) g/dL 2.6 L Procalcitonin ng/mL < 0.1 Patient ABO/Rh Antibody Screen Range/Units 02/23/23 02/23/23 22:10 23:05 WBC (4.4-10.8) 10^3/uL 10.50 RBC (4.36-5.78) 10^6/uL 2.58 L Hgb (13.5-17.5) g/dL 7.9 L Hct (40.0-50.0) % 24.1 L MCV (80-95) fL 93 MCH (27.0-33.0) pg 30.6 MCHC (32.0-36.0) % 32.8 RDW (11.8-14.1) % 12.9 Plt Count (130-400) 10^3/uL 156 MPV (8.0-11.0) fL 10.4 Immature Gran % 0.3 Neutrophils % 84.7 Lymphocytes % 10.5 Monocytes % 4.1 Eosinophils % 0.1 Basophils % 0.3 Nucleated RBC % (0.0-0.3) % 0.0 Absolute Neutrophils (1.2-6.7) 10^3/uL 8.90 H Absolute Lymphocytes (1.2-3.4) 10^3/uL 1.10 L Absolute Monocytes (0.1-0.8) 10^3/uL 0.43 Absolute Eosinophils (0.0-0.7) 10^3/uL 0.01 Absolute Basophils (0.0-0.2) 10^3/uL 0.03 VBG Lactate (0.6-1.4) mmol/L Sodium (136-145) mmol/L Potassium (3.5-5.1) mmol/L Chloride (98-107) mmol/L Carbon Dioxide (21.0-32.0) mmol/L Anion Gap (3-11) mmol/L BUN (7-18) mg/dL Creatinine (0.70-1.30) mg/dL Est GFR (CKD-EPI 2020) (mL/min/1.73m2) Glucose (74-106) mg/dL Calcium (8.5-10.1) mg/dL Total Bilirubin (0.2-1.0) mg/dL AST (15-37) U/L ALT (16-63) U/L Alkaline Phosphatase (46-116) U/L Total Protein (6.4-8.2) g/dL Albumin (3.4-5.0) g/dL Procalcitonin ng/mL Patient ABO/Rh A Positive Antibody Screen NEGATIVE <Hemanth Arriaga DO - Last Filed: 02/24/23 01:06> Critical Care Time Critical Care Time: Yes Total Critical Care Time: 30 Attestation: Upon my evaluation, this patient had a high probability of imminent or life- threatening deterioration, which required my direct attention, intervention, and personal management. I have personally provided 45 minutes of critical care time exclusive of time spent on separately billable procedures. Time includes review of laboratory data, radiology results, discussion with consultants, and monitoring for potential decompensation. Interventions were performed as documented. Sign Out <OLEKSANDR Parisi - Last Filed: 02/26/23 18:43> Sign Out Data: Sign Out Comment: pending urinalysis and [facility] consult Last updated by Kacie Alvarado PA at 02/23/23 23:40
[2023-02-23] MEDS: fentaNYL 100 MCG/2 ML VIAL 50 MCG IVP (23:29)
[2023-02-23] MEDS: Normal Saline 500 ML IV (23:45)
[2023-02-23] MEDS: Lidocaine 2% Jelly 11 ML SYR UR (23:54)
[2023-02-24] VITALS (28 sets, daily range): BP systolic 82–112; BP diastolic 46–58; PULSE 72–89; RESP 8–26; TEMP 36.9; O2SAT 90–95
[2023-02-24 00:52] LABS: Bilirubin Negative (Negative); Blood Large (Negative); Clarity Cloudy (Clear); Glucose Negative (Negative); Ketones Negative (Negative); Leukocyte Esterase Negative (Negative); Nitrite Negative (Negative); Urobilinogen 0.2 mg/dL (Up to 0.2)
[2023-02-24 00:59] LABS: C & S Indicated? Yes; RBC >50 HPF (0-2)
--- NOTE | 2023-02-24 08:51 | NUR.NOTE ---
Addendum entered by Kaitlyn Luke 02/24/23 10:17: Xray report with discrepancy faxed to [facility] [address] [place] [address] Rosenda Lechuga request. Original Note: Accessed pt chart to determine disposition of patient Nursing Note:
--- NOTE | 2023-02-24 15:31 | NUR.NOTE ---
At the request of [facility] the radiology reports and urinalysis result were faxed to them @ [phone]. Nursing Note:
--- NOTE | 2023-02-25 12:56 | NUR.NOTE ---
Accessed chart to determine orders for EKG and to determine whether or not one needs to be cancelled. Nursing Note:
== END 2023-02-24 01:41 | disposition short-term general hospital (02) ==
PROVIDERS: Physician Assistant; Emergency Provider Student in an Organized Health Care Education/Training Program; PCP Internal Medicine
DX: R31.9 Hematuria, unspecified (principal); N28.1 Cyst of kidney, acquired; N21.0 Calculus in bladder; D62 Acute posthemorrhagic anemia; Z96.0 Presence of urogenital implants
CPT/HCPCS: 51702; 80053; 84145; 86850; 86900; 86901; 86920; 87040; 96365; 96375; 99291; 71045; 74176; 81003; 81015; 83605; 85025; 87086; J2543; J3010; P9016

== ENCOUNTER → 2023-02-25 07:37 | Outpatient (BNVA) | payer MEDICARE, SELFPAY | PROVIDERS: PCP Internal Medicine; Referring Provider Internal Medicine; Visit Provider Urology ==

== ENCOUNTER → 2023-03-10 14:23 | Outpatient (BNVA) | payer MEDICARE, SELFPAY | PROVIDERS: PCP Internal Medicine; Referring Provider Internal Medicine; Visit Provider Nurse Practitioner Gerontology | DX: R33.8 Other retention of urine (principal); N21.0 Calculus in bladder | CPT/HCPCS: 99214 ==

== ENCOUNTER 2023-03-28 06:06 | Day surgery (SDC) | payer MEDICARE, SELFPAY ==
--- NOTE | 2023-03-28 06:18 | W.ANESPRE ---
General Info Date of Service Date Performed: 03/28/23 Height: 5 ft 8 in Weight: 68.039 kg Body Mass Index (BMI): 22.8 Surgical Procedure: Operation Date: 03/28/23 07:40 Proposed Procedure Side Surgeon p Cystogram Homero Connors MD Meds Allergies and Home Medications Allergies Allergy/AdvReac Type Severity Reaction Status Date / Time No Known Allergies Allergy Verified 03/28/23 06:31 Home Medication Medication Instructions Recorded tamsulosin 0.4 mg capsule (Flomax) 0.8 mg PO DAILY #180 caps 08/23/22 Current Visit Medications: Current Medications Generic Name Dose Route Start Last Admin Trade Name Freq PRN Reason Stop Dose Admin Ringer's Solution 1,000 mls @ 80 mls/hr 03/28/23 06:00 IV 04/24/23 23:59 INFUSION LYLA IV Miscellaneous Supplies 1 each 03/28/23 06:00 Iv Access IV 04/24/23 23:59 DIRECTED LYLA Sodium Chloride 0 ml 03/28/23 06:00 Normal Saline Flush 10 Ml Syr IV 04/24/23 23:59 PRN PRN Sodium Chloride 0 ml 03/28/23 06:00 Normal Saline 10 Ml Vial IJ 04/24/23 23:59 DIRECTED PRN Sterile Water 0 ml 03/28/23 06:00 Water,Injection,Sterile 10 Ml Vial IJ 04/24/23 23:59 DIRECTED PRN Trimethoprim/Sulfamethoxazole 1 tab 03/28/23 06:00 Sulfameth/Trimeth Ds Tab PO 03/28/23 18:00 PREOP LYLA PFSH Active Problems Active Problems: Problem Status Onset Code Acute urinary retention R33.8 Elevated PSA R97.20 Bladder stones N21.0 Surgical History Surgical History Hx of cystoscopy 02/17 [facility]; [facility] [place] 02/25 cystolitholopaxy Hx of endoscopy Tobacco Smoking/Tobacco Use Status: Former Tobacco Use Alcohol Alcohol Intake: former Substance Use Substance use: Never Substance use type: does not use Vital Signs and Lab Results Vital Signs Most Recent Vital Signs in EMR: Temp Pulse Resp BP Pulse Ox 36.6 C 76 20 122/74 100 03/28/23 06:32 03/28/23 06:32 03/28/23 06:32 03/28/23 06:32 03/28/23 06:32 Lab Results Blood Type / Crossmatch: No Data to Display Complete Blood Count: No Data to Display Complete Metabolic Panel: No Data to Display Liver Function Panel: No Data to Display Coagulation Panel: No Data to Display Cardiac Panel: No Data to Display Arterial Blood Gas: No Data to Display Venous Blood Gas: No Data to Display Pancreas Panel: No Data to Display Thyroid Panel: No Data to Display Infectious Disease: No Data to Display Blood Cultures: No Data to Display Toxicology Panel: No Data to Display Anesthesia Assessment and Plan Anesthesia History Personal History: No History of Anesthesia Complications Family History: No Family History of Anesthesia Complications Exercise Tolerance Exercise Tolerance: Metabolic Equivalents>4 Cardiac & Pulmonary Exam Cardiac Exam: Normal S1/S2 Heart Sounds Pulmonary Exam: Clear Bilateral Breath Sounds Implantable Cardiac Device Does patient have a Pacemaker or an ICD?: No Airway Exam Known Difficult Airway: No Mallampati Class: 2 Mouth Opening: Normal (> 3cm) Thyromental Distance: Greater than 3 cm Neck Range of Motion: Full ROM Neck Circumference: Normal Teeth Condition: Normal Dentition ASA Classification ASA Score: ASA 2 Emergency Case?: No NPO Status NPO Status: NPO Clears >2 hours, Solids >8 hours Anesthesia Plan Resuscitation Status: Full Code Anesthesia Technique: General Anesthesia Airway Planned: Natural Airway Monitors Used: Standard Monitors Preoperative Comments:: 72 yo male for cystogram. no changes in health history. Sig PMHx: bladder stones, former smoker, Previous Anes: - prop, natural airway, no issues.
[2023-03-28 06:32] VITALS: BP 122/74; PULSE 76; RESP 20; TEMP 36.6; O2SAT 100
[2023-03-28] MEDS: Sulfameth/Trimeth DS TAB 1 TAB PO (06:45)
--- NOTE | 2023-03-28 06:52 | HPE_ITS ---
Date of service: 03/28/23 Time of Service: 06:52 Assessment and Plan Assessment and plan (1) Bladder stones: Status: Acute Assessment and plan: We will perform his cystogram under fluoroscopy here in the operating room (not available in the x-ray department) to make sure his bladder has healed. We will then plan to remove his catheter. There is still concerns that he may not be able to empty his bladder completely which is probably the etiology of his bladder stones in the first place. History of Present Illness History of Present Illness Chief Complaint: Bladder stones Narrative: This is a 72-year-old gentleman who has a history of hematuria. He was identified as having multiple large bladder stones. We initially attempted to do cystoscopy and holmium laser lithotripsy, but we were unable to clear all of the stones in 1 procedure. We had planned on a return to the operating room when he presented back through the ER with clot retention. He also had left hydronephrosis. He was transferred to an outlying institution. His hydronephrosis resolved, so he did not need a nephrostomy tube, but he did undergo an open cystolithotomy and evacuation of blood clots. He elected not to have a prostatectomy at that time. He was discharged with a catheter in place. He presents now for cystogram to ensure his bladder has healed. Review of Systems Narrative: No fevers or chills No vision change or dysphasia No diabetes or thyroid dysfunction No shortness of breath, cough or hemoptysis No chest pain or palpitations No nausea, vomiting, hepatitis, ulcers, jaundice, diarrhea or constipation No seizures, strokes or peripheral neuropathy No bleeding disorders or anemia No gout PFSH All Active Problems Acute urinary retention (Acute) Elevated PSA (Acute) Bladder stones (Acute) Surgical History Hx of cystoscopy 02/17 [facility]; [facility] [place] [place] 02/25 cystolitholopaxy Hx of endoscopy Social History Smoking/Tobacco Use Status: Former Tobacco Use Quit Date: 07/04/99 Smoking risk assessment performed?: Yes Alcohol Intake: former Drug use: Never Substance use type: does not use Housing: house Do you feel safe at home: Yes Do you feel safe in your relationship?: Yes Meds Allergies and Home Medications Allergies Allergy/AdvReac Type Severity Reaction Status Date / Time No Known Allergies Allergy Verified 03/28/23 06:31 Home Medications Medication Instructions Recorded Confirmed Type tamsulosin 0.4 mg capsule (Flomax) 0.8 mg PO DAILY #180 caps 08/23/22 03/28/23 Rx Exam Const General: cooperative and other (talkative) Neck Neck: supple Resp Effort & Inspection: normal respiratory effort Auscultation: clear to auscultation bilaterally Cardio Rate: regular rate Rhythm: regular rhythm GI Palpation: soft Neuro General: patient alert and patient awake Results Last Vital Signs Temp 36.6 C 03/28/23 06:32 Pulse 76 03/28/23 06:32 Resp 20 03/28/23 06:32 BP 122/74 03/28/23 06:32 Pulse Ox 100 03/28/23 06:32 Time Spent Time spent with Patient: <40 minutes Time was spent: other
[2023-03-28 06:54] VITALS: BMI 22.8
[2023-03-28] MEDS: Lactated Ringers 1,000 ML 80 ML IV (06:55)
--- NOTE | 2023-03-28 07:40 | DI.RAD_ITS ---
Exam(s) XR RETROGRADE IN OR EXAM: XR RETROGRADE IN OR CLINICAL HISTORY: cystogram. TECHNIQUE: 2D digital imaging was performed. COMPARISON: No exams were available for comparison FINDINGS: Fluoroscopy provided during cystogram. Submitted images reveal multi trabeculated bladder with numer ous diverticuli and reflux up the right ureter. See procedure report for details. IMPRESSION: Total fluoroscopy time 9.3 seconds Radiation exposure index/cumulative dose: Ka,r= 1.7460 mGy DATA REPOSITORY: RADIATION DOSE DELIVERED:
--- NOTE | 2023-03-28 07:44 | W.PM.OP ---
Date of service: 03/28/23 Time of Service: 07:44 Operative Note Operative Note DATE OF PROCEDURE: 03/28/23 PRE-OP DIAGNOSIS: Bladder stones POST-OP DIAGNOSIS: same PROCEDURE: cystogram SURGEON: Homero Connors ANESTHESIA TYPE: Local By Surgeon Refer to Anesthesia Record ESTIMATED BLOOD LOSS: 0 PATHOLOGY: none sent Patient was transported to: same day Patient's condition: stable Implants: none Indications: This is a 72-year-old gentleman who has a history of an elevated PSA and bladder stones. He underwent a cystoscopy with holmium laser lithotripsy, but his stone burden was so large that we were unable to clear all of his stones. He then developed clot retention and hydronephrosis. He was transferred to a tertiary care center where he underwent an open cystolithotomy. He was not agreeable to any type of procedure on his prostate or bladder outlet. He did not require placement of a nephrostomy tube. He was discharged with a Schwartz catheter in place. He comes in for cystogram to ensure it is safe to remove his catheter. Findings: Reflux upper right ureter Heavily trabeculated bladder No extravasation Procedure Description: The patient was brought to the operating room on 03/28/2023. He was given a single dose of oral Bactrim. He was placed in the supine position. His Schwartz catheter drainage bag was disconnected and the bladder was gradually filled with Omnipaque under fluoroscopic guidance. AP and oblique films were obtained. The bladder was heavily trabeculated with multiple diverticuli. There was free reflux of contrast up the right ureter to the collecting system. There were no obvious filling defects within the bladder. There was no extravasation of contrast on both filling phase and after the bladder was drained. Having been reassured that the bladder had healed, the catheter balloon was deflated and the catheter was removed. The patient tolerated the procedure well.
--- NOTE | 2023-03-28 07:46 | W.PM.DSUDISC ---
Date of service: 03/28/23 Time of Service: 07:46 Discharge Plan Disposition Patient Disposition: Home Condition: Stable Discharge Details Reason For Visit: cystogram Attending Provider: Homero Connors Primary Care Provider: Jaiden Portillo Home Meds and New Rx's Prescriptions: No Action tamsulosin [Flomax] 0.4 mg capsule 0.8 mg PO DAILY Qty: 180 3RF Discharge Instructions Additional Instructions: followup 4 to 6 weeks for bladder scan Stand Alone Forms: Anesthesia Discharge Inst., [facility] Aleyda Hull ([facility]) Activity:: Activity as Tolerated Shower/Bathe:: 24 hours Diet:: As Tolerated Discharge Orders Discharge Orders: Discharge Order (Routine); Ordered 03/28/23 Ordered By: Homero Connors DS: Diagnosis Discharge Diagnosis (1) Bladder stones: Status: Acute
[2023-03-28 07:51] VITALS: BP 103/62; PULSE 61; RESP 20; TEMP 36.4; O2SAT 95
--- NOTE | 2023-03-28 08:10 | W.ANESPOSTOP ---
Postoperative Evaluation Date, Time and Location Date Performed: 03/28/23 Time Performed: 08:10 Patient Location: Day Surgery Unit Vital Signs Most Recent Imported Vital Signs: Most Recent Vital Signs Temp Pulse Resp BP Pulse Ox 36.4 C L 61 20 103/62 95 03/28/23 07:51 03/28/23 07:51 03/28/23 07:51 03/28/23 07:51 03/28/23 07:51 Pain Score Most Recent Pain Score: Most Recent Pain Score Pain Level 1 03/28/23 07:51 Assessment Mental Status: Awake (Alert & Oriented to Patient Baseline) Airway and Respiratory Function: Patent airway with normal (patient baseline) respiratory exam Cardiovascular Function: Hemodynamically Stable Hydration Status: Adequately Hydrated Nausea & Vomiting: No Nausea or Vomiting Pain: Pt. Denies Any Pain Peripheral Nerve Block: Patient did not receive a nerve block
[2023-03-28 08:16] VITALS: BP 114/69; PULSE 65; RESP 18; TEMP 36.3; O2SAT 100
[2023-03-28] MEDS: Phenazopyridine 200 MG TAB PO (09:42)
== END 2023-03-28 09:42 | disposition home or self-care (01) ==
PROVIDERS: PCP Internal Medicine; Visit Provider Urology
PROC: 0TJB8ZZ Inspection of Bladder, Via Natural or Artificial Opening Endoscopic (ICD-10-PCS; CPT 52000; principal; 2023-03-28 07:30)
DX: N21.0 Calculus in bladder (principal); N13.70 Vesicoureteral-reflux, unspecified; N32.89 Other specified disorders of bladder; N32.3 Diverticulum of bladder
CPT/HCPCS: 51600; 74420; J2001; J2405

== ENCOUNTER → 2023-05-04 09:35 | Outpatient (BNVA) | payer MEDICARE, SELFPAY | PROVIDERS: PCP Internal Medicine; Referring Provider Internal Medicine; Visit Provider Nurse Practitioner Gerontology | DX: R33.8 Other retention of urine (principal) | CPT/HCPCS: 51798; 99214 ==

== ENCOUNTER 2023-06-16 17:34 | Outpatient (REF) | payer MEDICARE, SELFPAY ==
[2023-06-16 18:17] LABS: Bilirubin Negative (Negative); Blood Moderate (Negative); Clarity Sl Cloudy (Clear); Glucose Negative (Negative); Ketones Negative (Negative); Leukocyte Esterase Large (Negative); Nitrite Positive (Negative); Specific Gravity 1.015 (1.005-1.025); Urobilinogen 0.2 mg/dL (Up to 0.2)
[2023-06-16 18:28] LABS: Bacteria Few HPF (Negative); C & S Indicated? C&S Done As Ordered; Casts Negative LPF (Negative); Crystals Negative HPF (Negative); Epithelial Cells Negative HPF (Negative); Mucus Negative (Negative); WBC 20-50 HPF (0-5)
== END 2023-06-16 17:35 | disposition home or self-care (01) ==
LOC: LBN 17:34
PROVIDERS: PCP Internal Medicine; Visit Provider Urology
DX: R31.9 Hematuria, unspecified (principal)
CPT/HCPCS: 87077; 81003; 81015; 87086; 87186

== ENCOUNTER 2023-11-24 10:16 | Emergency (ER) | payer MEDICARE, SELFPAY ==
[2023-11-24 10:18] VITALS: BP 150/88; PULSE 70; RESP 18; TEMP 37; O2SAT 99
[2023-11-24 10:29] VITALS: BP 150/88; PULSE 70; RESP 18; TEMP 37; O2SAT 99
--- NOTE | 2023-11-24 10:40 | ED.GENADUL_ITS ---
Discharge Plan Disposition Patient Disposition: Home Discharge Details Clinical Impression: Acute UTI Primary Care Provider: Jaiden Portillo ED Provider: Kacie Alvarado Home Meds and New Rx's Prescriptions: New cefpodoxime 200 mg tablet 200 mg PO Q12H Qty: 20 0RF Rx Instructions: must administer with a meal/food Continued tamsulosin [Flomax] 0.4 mg capsule 0.4 mg PO DAILY Qty: 90 3RF Discharge Instructions Instructions: Urinary Tract Infection in Men (ED) Additional Instructions: Take antibiotic as prescribed Yogurt daily while on antibiotics Please follow-up with your primary care physician in 1 week for reassessment should your symptoms persist Should you have worsening symptoms including fever, nausea, back pain please return immediately for reassessment Referrals: Jaiden Portillo MD [Primary Care Provider] - HPI General Date/Time Provider Initiated Documentation: 11/24/23 10:25 . HPI Narrative: 73-year-old male with history of urinary retention, straight cath to assist with urination presents with report of dysuria past medical conversation some intermittent blood in his urine. Denies any fever or chills. Denies any back pain. Denies any nausea or vomiting. Denies any malaise Related Data Home Medications Medication Instructions Recorded Confirmed tamsulosin 0.4 mg capsule (Flomax) 0.4 mg PO DAILY #90 caps 09/15/23 11/24/23 cefpodoxime 200 mg tablet 200 mg PO Q12H #20 tabs 11/24/23 Previous Rx's Medication Instructions Recorded tamsulosin 0.4 mg capsule (Flomax) 0.4 mg PO DAILY #90 caps 09/15/23 cefpodoxime 200 mg tablet 200 mg PO Q12H #20 tabs 11/24/23 Allergies Allergy/AdvReac Type Severity Reaction Status Date / Time No Known Allergies Allergy Verified 11/24/23 10:22 General Stated Complaint: Urinary YA: 3 Exam Narrative Exam Narrative: Alert and oriented 73-year-old gentleman, cardiac rate rhythm regular, no respiratory distress, no CVA tenderness, no abdominal tenderness, alert and oriented x 3 Course Vital Signs Vital signs: Vital Signs Temperature 37.0 C 11/24/23 10:18 Pulse 70 11/24/23 10:18 Respiratory Rate 18 11/24/23 10:18 Blood Pressure 150/88 H 11/24/23 10:18 Pulse Oximetry 99 05/23/24 10:18 Temperature 37.0 C 11/24/23 10:29 Temperature Source Skin 11/24/23 10:29 Pulse 70 11/24/23 10:29 Respiratory Rate 18 11/24/23 10:29 Respiratory Effort Normal 11/24/23 10:21 Blood Pressure 150/88 H 11/24/23 10:29 Blood Pressure Position Sitting 11/24/23 10:29 Pulse Oximetry 99 11/24/23 10:29 Oxygen Delivery Method Room Air 11/24/23 10:29 Oxygen Flow Rate 0 11/24/23 10:29 Pain Level 1 11/24/23 10:29 Medical Decision Making 73-year-old male who at baseline straight catheterizes himself presents with report of urinary symptoms. Patient is alert, oriented, benign exam. Patient has stable vitals and assessment. Urinalysis is concerning for urinary tract infection. There is no evidence clinically of pyelonephritis. Given that patient self catheterizes himself, he is at risk for broad-spectrum bacteria. I will initiate cefpodoxime 2 times daily for 10 days. His urine will be sent for culture. He is able to self cath without difficulty here. Return precautions reviewed and patient expressed understanding, discharged home in stable condition with stable vitals Quality:SDOH Health Related Social Needs: No Data to Display PFSH All Active Problems (Updated 11/24/23 @ 11:24 by OLEKSANDR Parisi) Acute UTI (Acute) Acute urinary retention (Acute) Elevated PSA (Acute) Bladder stones (Acute) Surgical History Hx of cystoscopy 02/17 [facility]; [facility] [place] 02/25 cystolitholopaxy Hx of endoscopy Social History Smoking/Tobacco Use Status: Former Tobacco Use Quit Date: 07/04/99 Smoking risk assessment performed?: Yes Alcohol Intake: former Drug use: Never Substance use type: does not use Housing: house Do you feel safe at home: Yes Do you feel safe in your relationship?: Yes
[2023-11-24 10:58] LABS: Bilirubin Negative (Negative); Blood Large (Negative); Clarity Cloudy (Clear); Glucose Negative (Negative); Ketones Negative (Negative); Leukocyte Esterase Large (Negative); Nitrite Positive (Negative); Specific Gravity 1.015 (1.005-1.025); Urobilinogen 0.2 mg/dL (Up to 0.2)
[2023-11-24 11:07] LABS: Bacteria Many HPF (Negative); C & S Indicated? Yes; Casts Negative LPF (Negative); Crystals Negative HPF (Negative); Epithelial Cells Rare HPF (Negative); Mucus Trace (Negative); RBC >50 HPF (0-2); WBC 20-50 HPF (0-5)
== END 2023-11-24 11:46 | disposition home or self-care (01) ==
LOC: ER 11:49
PROVIDERS: Emergency Provider Physician Assistant; PCP Internal Medicine
DX: N39.0 Urinary tract infection, site not specified (principal); R31.0 Gross hematuria; R30.0 Dysuria
CPT/HCPCS: 87077; 99283; 81003; 81015; 87086; 87186

== ENCOUNTER → 2023-12-27 13:50 | Outpatient (BNVA) | payer MEDICARE, SELFPAY | PROVIDERS: PCP Internal Medicine; Referring Provider Internal Medicine; Visit Provider Nurse Practitioner Gerontology | DX: N40.1 Benign prostatic hyperplasia with lower urinary tract symptoms (principal); R33.8 Other retention of urine | CPT/HCPCS: 51798; 99214 ==

== ENCOUNTER 2024-01-01 18:17 | Emergency (ER) | payer MEDICARE, SELFPAY ==
[2024-01-01 18:20] VITALS: BP 134/73; PULSE 84; RESP 18; O2SAT 97
[2024-01-01 20:18] LABS: Bilirubin Negative (Negative); Blood Moderate (Negative); Clarity Clear (Clear); Glucose Negative (Negative); Ketones Negative (Negative); Leukocyte Esterase Small (Negative); Nitrite Positive (Negative); Urobilinogen 0.2 mg/dL (Up to 0.2); pH 5.5 (5-8)
[2024-01-01 20:24] LABS: Bacteria Moderate HPF (Negative); C & S Indicated? Yes; Crystals Negative HPF (Negative); Epithelial Cells Rare HPF (Negative); Mucus Negative (Negative)
--- NOTE | 2024-01-01 20:39 | ED.GENADUL_ITS ---
Discharge Plan Disposition Patient Disposition: Home Condition: Improving Discharge Details Clinical Impression: UTI (urinary tract infection) Primary Care Provider: Jaiden Portillo ED Provider: Chava Zavala Home Meds and New Rx's Prescriptions: New cefpodoxime 200 mg tablet 200 mg PO BID 7 Days Qty: 14 0RF Rx Instructions: must administer with a meal/food No Action tamsulosin [Flomax] 0.4 mg capsule 0.8 mg PO DAILY Qty: 180 3RF Rx Instructions: Note increase dosage. Take after supper meal Discharge Instructions Instructions: Urinary Tract Infection, Adult ED HPI General Date/Time Provider Initiated Documentation: 01/01/24 19:47 . HPI Narrative: 73-year-old male history of enlarged prostate, chronically self catheterizes, recurrent UTIs, presents with dysuria and intermittent hematuria, denies fevers chills nausea vomiting, denies back pain Related Data Home Medications Medication Instructions Recorded Confirmed tamsulosin 0.4 mg capsule (Flomax) 0.8 mg (2 x 0.4 mg) PO DAILY #180 12/27/23 01/01/24 caps cefpodoxime 200 mg tablet 200 mg PO BID 7 days #14 tabs 01/01/24 Previous Rx's Medication Instructions Recorded tamsulosin 0.4 mg capsule (Flomax) 0.8 mg (2 x 0.4 mg) PO DAILY #180 12/27/23 caps cefpodoxime 200 mg tablet 200 mg PO BID 7 days #14 tabs 01/01/24 Allergies Allergy/AdvReac Type Severity Reaction Status Date / Time No Known Allergies Allergy Verified 01/01/24 18:22 General Stated Complaint: Urinary YA: 4 Review of Systems Narrative: Review of Systems Constitutional: negative Eyes: negative ENT: negative Cardiovascular: negative Respiratory: negative Gastrointestinal: negative : Dysuria, hematuria Musculoskeletal: negative Skin: negative Neurologic: negative Psych: negative Exam Narrative Exam Narrative: Physical Examination General: alert, awake, cooperative, resting comfortably, no acute distress HEENT: normocephalic, atraumatic; PERRL, EOM intact, conjunctiva normal; no nasal discharge; moist mucous membranes, oral and pharyngeal mucosa normal, tolerating secretions Neck: supple, trachea midline; full ROM Chest: normal to inspection Respiratory: normal respiratory effort, speaking in full sentences GI: abdomen soft, non-tender, non-distended; no palpable mass or hepatosplenomegaly Skin: no lesions, rashes or trauma appreciated Neuro: AAOx3, normal speech, moving all extremities Psych: Appropriate mood and affect Course Vital Signs Vital signs: Vital Signs Pulse 84 01/01/24 18:20 Respiratory Rate 18 01/01/24 18:20 Blood Pressure 134/73 01/01/24 18:20 Pulse Oximetry 97 01/01/24 18:20 Pulse 84 01/01/24 18:20 Respiratory Rate 18 01/01/24 18:20 Blood Pressure 134/73 01/01/24 18:20 Pulse Oximetry 97 01/01/24 18:20 Oxygen Delivery Method Room Air 01/01/24 18:20 Oxygen Flow Rate 0 01/01/24 18:20 Pain Level 0 01/01/24 19:51 Lab/Test Results Lab/Test Results: 01/01/24 20:06 Urine - Reflex from Ua Urine Culture - Pending Laboratory Tests Range/Units 01/01/24 20:06 Urine Color (Yellow) Yellow Urine Clarity (Clear) Clear Urine pH (5-8) 5.5 Ur Specific [place] (1.005-1.025) 1.010 Urine Protein (Neg-Trace) mg/dL Negative Urine Ketones (Negative) mg/dL Negative Urine Blood (Negative) Moderate H Urine Nitrite (Negative) Positive H Urine Bilirubin (Negative) Negative Urine Urobilinogen (Up to 0.2) mg/dL 0.2 Ur Leukocyte Esterase (Negative) Small H Urine RBC (0-2) HPF 10-20 H Urine WBC (0-5) HPF 10-20 H Ur Epithelial Cells (Negative) HPF Rare Urine Crystals (Negative) HPF Negative Urine Bacteria (Negative) HPF Moderate Urine Mucus (Negative) Negative Ur Culture Indicated? Yes Urine Glucose (Negative) mg/dL Negative Medical Decision Making 73-year-old male history of enlarged prostate, chronically self catheterizes, frequent UTIs presents with dysuria and some hematuria over the last couple of days denies flank pain nausea vomiting fevers or chills nontoxic resting comfortably UA consistent with UTI. Lower suspicion for nephrolithiasis lower suspicion for pyelonephritis given history and physical. Will start empiric cefpodoxime, home care instructions and return precautions given Quality:SDOH Health Related Social Needs: No Data to Display PFSH All Active Problems (Updated 01/01/24 @ 20:40 by Chava Zavala MD) UTI (urinary tract infection) (Acute) Incomplete emptying of bladder due to benign prostatic hyperplasia (Acute) Acute urinary retention (Acute) Elevated PSA (Acute) Bladder stones (Acute) Surgical History [place] of [place] 02[place] [facility] [facility] [place] [facility] [place]olith[place] Hx of endoscopy Social History Smoking/Tobacco Use Status: Former Tobacco Use Quit Date: 07/04/99 Smoking risk assessment performed?: Yes Alcohol Intake: former Drug use: Never Substance use type: does not use Housing: house Do you feel safe at home: Yes Do you feel safe in your relationship?: Yes
[2024-01-01] MEDS: Cefpodoxime 200 MG TAB PO (20:41)
== END 2024-01-01 20:45 | disposition home or self-care (01) ==
PROVIDERS: Emergency Provider Emergency Medicine; PCP Internal Medicine
DX: N39.0 Urinary tract infection, site not specified (principal)
CPT/HCPCS: 87077; 99283; 81003; 81015; 87086; 87186; 99284

== ENCOUNTER 2024-01-10 14:36 | Emergency (ER) | payer MEDICARE, SELFPAY ==
[2024-01-10 14:37] VITALS: BP 152/78; PULSE 74; RESP 17; TEMP 36.8; O2SAT 98
[2024-01-10 14:50] VITALS: BP 138/65; PULSE 70; RESP 16; TEMP 37.2; O2SAT 95
--- NOTE | 2024-01-10 15:14 | W.ED.GENAD ---
Discharge Plan Disposition Patient Disposition: Home Condition: Stable Discharge Details Clinical Impression: UTI (urinary tract infection) Primary Care Provider: Jaiden Portillo ED Provider: Chava Zavala Home Meds and New Rx's Prescriptions: New levofloxacin 750 mg tablet 750 mg PO DAILY 10 Days Qty: 10 0RF No Action tamsulosin [Flomax] 0.4 mg capsule 0.8 mg PO DAILY Qty: 180 3RF Rx Instructions: Note increase dosage. Take after supper meal Discharge Instructions Instructions: Urinary Tract Infection, Adult ED Additional Instructions: Please follow-up with urology team and primary care. Return to the emergency department for any worsening symptoms HPI General Date/Time Provider Initiated Documentation: 01/10/24 14:45. HPI Narrative: 73-year-old male history of bladder stones BPH, chronic self cathing chronic recurrent UTIs, presents with some blood in his urine despite recently completing course of antibiotics for presumptive UTI. Denies fevers chills nausea vomiting or back pain. Related Data Home Medications Medication Instructions Recorded Confirmed tamsulosin 0.4 mg capsule (Flomax) 0.8 mg (2 x 0.4 mg) PO DAILY #180 12/27/23 01/01/24 caps levofloxacin 750 mg tablet 750 mg PO DAILY 10 days #10 tabs 01/10/24 Previous Rx's Medication Instructions Recorded tamsulosin 0.4 mg capsule (Flomax) 0.8 mg (2 x 0.4 mg) PO DAILY #180 12/27/23 caps levofloxacin 750 mg tablet 750 mg PO DAILY 10 days #10 tabs 01/10/24 Allergies Allergy/AdvReac Type Severity Reaction Status Date / Time No Known Allergies Allergy Verified 01/01/24 18:22 General Stated Complaint: Urinary YA: 4 Review of Systems Narrative: Review of Systems Constitutional: negative Eyes: negative ENT: negative Cardiovascular: negative Respiratory: negative Gastrointestinal: negative : Hematuria Musculoskeletal: negative Skin: negative Neurologic: negative Psych: negative Exam Narrative Exam Narrative: Physical Examination General: alert, awake, cooperative, resting comfortably, no acute distress HEENT: normocephalic, atraumatic; PERRL, EOM intact, conjunctiva normal; no nasal discharge; moist mucous membranes, oral and pharyngeal mucosa normal, tolerating secretions Neck: supple, trachea midline; full ROM Chest: normal to inspection Respiratory: normal respiratory effort, speaking in full sentences, clear to auscultation, no wheezing, rales or rhonchi Cardiac: regular rate, regular rhythm, S1S2 intact, no murmurs rubs or gallops GI: abdomen soft, non-tender, non-distended; no palpable mass or hepatosplenomegaly Skin: no lesions, rashes or trauma appreciated Neuro: AAOx3, normal speech, moving all extremities Course Vital Signs Vital signs: Vital Signs Temperature 36.8 C 01/10/24 14:37 Pulse 74 01/10/24 14:37 Respiratory Rate 17 01/10/24 14:37 Blood Pressure 152/78 H 01/10/24 14:37 Pulse Oximetry 98 01/10/24 14:37 Temperature 37.2 C 01/10/24 14:50 Temperature Source Temporal Artery Scan 01/10/24 14:50 Pulse 70 01/10/24 14:50 Respiratory Rate 16 01/10/24 14:50 Respiratory Effort Normal 01/10/24 14:42 Blood Pressure 138/65 01/10/24 14:50 Blood Pressure Position Sitting 01/10/24 14:50 Pulse Oximetry 95 01/10/24 14:50 Oxygen Delivery Method Room Air 01/10/24 14:50 Pain Level 2 01/10/24 14:50 Medical Decision Making 73-year-old male history of BPH bladder stones, recurrent UTIs, home self catheterization, presents with hematuria, denies back pain fevers chills nausea vomiting or abdominal pain, recently completed course of cefpodoxime. Consider UTI versus bladder mass versus prostatic malignancy lower suspicion for prostatitis or pyelonephritis given history and physical. No evidence of urinary outflow obstruction. Patient will self catheter urinalysis here in department, will encourage close follow-up with urology to consider cystoscopy 16: 42 evidence of recurrent UTI, will start levofloxacin, will provide referral for urology follow-up. Home care instructions and return precautions Quality:SDOH Health Related Social Needs: No Data to Display PFSH All Active Problems (Updated 01/10/24 @ 16:42 by Chava Zavala MD) UTI (urinary tract infection) (Acute) Incomplete emptying of bladder due to benign prostatic hyperplasia (Acute) Acute urinary retention (Acute) Elevated PSA (Acute) Bladder stones (Acute) Surgical History Hx of cystoscopy 02/17 [facility] [facility] [place] cystolitholopaxy Hx of endoscopy Social History Smoking/Tobacco Use Status: Former Tobacco Use Quit Date: 07/04/99 Smoking risk assessment performed?: Yes Alcohol Intake: former Drug use: Never Substance use type: does not use Housing: house Do you feel safe at home: Yes Do you feel safe in your relationship?: Yes
[2024-01-10 15:53] LABS: Bilirubin Negative (Negative); Blood Moderate (Negative); Clarity Sl Cloudy (Clear); Glucose Negative (Negative); Ketones Negative (Negative); Leukocyte Esterase Moderate (Negative); Nitrite Positive (Negative); Urobilinogen 0.2 mg/dL (Up to 0.2)
[2024-01-10 16:14] LABS: Bacteria Moderate HPF (Negative); C & S Indicated? Yes; Casts Negative LPF (Negative); Crystals Negative HPF (Negative); Epithelial Cells Rare HPF (Negative); Mucus Negative (Negative); RBC 20-50 HPF (0-2); WBC >50 HPF (0-5)
[2024-01-10] MEDS: levoFLOXacin 500 MG, levoFLOXacin 250 MG 750 MG PO (16:27)
== END 2024-01-10 16:55 | disposition home or self-care (01) ==
PROVIDERS: Emergency Provider Emergency Medicine; PCP Internal Medicine
DX: N39.0 Urinary tract infection, site not specified (principal); Z87.440 Personal history of urinary (tract) infections
CPT/HCPCS: 87077; 99283; 81003; 81015; 87086; 87186; 99284

== ENCOUNTER 2024-01-27 14:19 | Emergency (ER) | payer MEDICARE, SELFPAY ==
[2024-01-27 14:28] VITALS: BP 126/71; PULSE 66; RESP 16; TEMP 37.1; O2SAT 97
[2024-01-27 16:13] LABS: Bilirubin Negative (Negative); Blood Small (Negative); Clarity Sl Cloudy (Clear); Glucose Negative (Negative); Ketones Negative (Negative); Leukocyte Esterase Moderate (Negative); Nitrite Negative (Negative); Specific Gravity 1.015 (1.005-1.025); Urobilinogen 0.2 mg/dL (Up to 0.2)
[2024-01-27 16:27] LABS: Bacteria Rare HPF (Negative); C & S Indicated? C&S Done As Ordered; Crystals Negative HPF (Negative); Epithelial Cells Rare HPF (Negative); Mucus Negative (Negative); Other Cells Rare Transitional (Negative); WBC 20-50 HPF (0-5)
--- NOTE | 2024-01-27 16:29 | ED.GENADUL_ITS ---
Discharge Plan Disposition Patient Disposition: Home Condition: Stable Discharge Details Clinical Impression: Complicated UTI (urinary tract infection) Primary Care Provider: Unknown,Unknown ED Provider: Bladimir Pollard Home Meds and New Rx's Prescriptions: New sulfamethoxazole-trimethoprim [Bactrim] 400-80 mg tablet 1 tab PO BID Qty: 19 0RF Continued tamsulosin [Flomax] 0.4 mg capsule 0.8 mg PO DAILY Qty: 180 3RF Rx Instructions: Note increase dosage. Take after supper meal Discharge Instructions Instructions: Urinary Tract Infection, Adult ED Additional Instructions: Please take full course of antibiotic as prescribed. Please follow-up with urology next week. Please contact your primary care physician to arrange follow-up. Return to the ER immediately for any worsening or new concerning symptoms. Referrals: [facility] [Provider Group] HPI General Mode of arrival: ambulatory . Date/Time Provider Initiated Documentation: 01/27/24 14:46 . Limitations to Documentation: no limitations . Information obtained by: patient . HPI Narrative: 73-year-old male with history of urinary retention, self catheterizes, recent urinary tract infection, seen here on 01/10/2024, had urine culture growing Citrobacter freundii resistant to multiple antibiotics, treated with Levaquin for 10 days, noted symptom improvement, now with hematuria today. Patient notes some mild discomfort in his bladder noting it feels irritated. No associated fever. Related Data Home Medications ?Medication ?Instructions ?Recorded ?Confirmed tamsulosin 0.4 mg capsule (Flomax) 0.8 mg (2 x 0.4 mg) PO DAILY #180 12/27/23 01/27/24 caps sulfamethoxazole 400 1 tab PO BID #19 tabs 01/27/24 mg-trimethoprim 80 mg tablet (Bactrim) Previous Rx's ?Medication ?Instructions ?Recorded tamsulosin 0.4 mg capsule (Flomax) 0.8 mg (2 x 0.4 mg) PO DAILY #180 12/27/23 caps sulfamethoxazole 400 1 tab PO BID #19 tabs 01/27/24 mg-trimethoprim 80 mg tablet (Bactrim) Allergies Allergy/AdvReac Type Severity Reaction Status Date / Time No Known Allergies Allergy Verified 01/27/24 14:30 General Stated Complaint: Urinary YA: 3 Review of Systems All systems reviewed & are unremarkable except as noted in HPI and below Constitutional Constitutional: Denies fever(s) Genitourinary Genitourinary: Reports as per HPI Exam Const General: cooperative and no acute distress HENMT Mouth: moist mucous membranes Resp Auscultation: clear to auscultation bilaterally, no rales, no rhonchi and no wheezes Cardio Rate: regular rate and not tachycardic Rhythm: regular rhythm GI Palpation: soft, not firm, no guarding, no masses, not rigid and nontender Course Vital Signs Vital signs: Vital Signs Temperature 37.1 C 01/27/24 14:28 Pulse 66 01/27/24 14:28 Respiratory Rate 16 01/27/24 14:28 Blood Pressure 126/71 01/27/24 14:28 Pulse Oximetry 97 01/27/24 14:28 Temperature 37.1 C 01/27/24 14:28 Pulse 66 01/27/24 14:28 Respiratory Rate 16 01/27/24 14:28 Respiratory Effort Normal, Non-Labored 01/27/24 14:31 Blood Pressure 126/71 01/27/24 14:28 Blood Pressure Position Sitting 01/27/24 14:28 Pulse Oximetry 97 01/27/24 14:28 Oxygen Delivery Method Room Air 01/27/24 14:28 Oxygen Flow Rate 0 01/27/24 14:28 Lab/Test Results Lab/Test Results: 01/27/24 15:25 Urine - Bladder Aspirate Urine Culture - Pending Laboratory Tests Range/Units 01/27/24 15:25 Urine Color (Yellow) Yellow Urine Clarity (Clear) Sl Cloudy Urine pH (5-8) 7.0 Ur Specific [place] (1.005-1.025) 1.015 Urine Protein (Neg-Trace) mg/dL Negative Urine Ketones (Negative) mg/dL Negative Urine Blood (Negative) Small H Urine Nitrite (Negative) Negative Urine Bilirubin (Negative) Negative Urine Urobilinogen (Up to 0.2) mg/dL 0.2 Ur Leukocyte Esterase (Negative) Moderate H Urine RBC (0-2) HPF 10-20 H Urine WBC (0-5) HPF 20-50 H Ur Epithelial Cells (Negative) HPF Rare Urine Crystals (Negative) HPF Negative Urine Bacteria (Negative) HPF Rare Urine Mucus (Negative) Negative Urine Other (Negative) Rare Transitional Ur Culture Indicated? C&S Done As Ordered Urine Glucose (Negative) mg/dL Negative Medical Decision Making 73-year-old male history of urinary retention, self catherizes, recent UTI, cultures 01/09 growing Citrobacter freundii. Patient was treated with full 10-day course of Levaquin. Patient now with recurrent symptoms including bladder irritation and hematuria. Urinalysis reviewed: Hematuria and leukouria noted. Based on sensitivities from most recent culture I will start Bactrim and continue for the next 10 days. I will have him follow-up with urology next week. Usual customary discharge instructions reviewed with patient. He understands importance of timely follow-up. Lab Data Lab results reviewed: Yes I reviewed the patient's lab results. Labs: 01/27/24 15:25 Urine - Bladder Aspirate Urine Culture - Pending Laboratory Tests Range/Units 01/27/24 15:25 Urine Color (Yellow) Yellow Urine Clarity (Clear) Sl Cloudy Urine pH (5-8) 7.0 Ur Specific [place] (1.005-1.025) 1.015 Urine Protein (Neg-Trace) mg/dL Negative Urine Ketones (Negative) mg/dL Negative Urine Blood (Negative) Small H Urine Nitrite (Negative) Negative Urine Bilirubin (Negative) Negative Urine Urobilinogen (Up to 0.2) mg/dL 0.2 Ur Leukocyte Esterase (Negative) Moderate H Urine RBC (0-2) HPF 10-20 H Urine WBC (0-5) HPF 20-50 H Ur Epithelial Cells (Negative) HPF Rare Urine Crystals (Negative) HPF Negative Urine Bacteria (Negative) HPF Rare Urine Mucus (Negative) Negative Urine Other (Negative) Rare Transitional Ur Culture Indicated? C&S Done As Ordered Urine Glucose (Negative) mg/dL Negative Quality:SDOH Health Related Social Needs: No Data to Display PFSH All Active Problems (Updated 01/27/24 @ 16:45 by Bladimir Pollard MD) Complicated UTI (urinary tract infection) (Acute) UTI (urinary tract infection) (Acute) Incomplete emptying of bladder due to benign prostatic hyperplasia (Acute) Acute urinary retention (Acute) Elevated PSA (Acute) Bladder stones (Acute) Surgical History Hx of cystoscopy 02/17 [facility]; [facility] [place]/25 cystolitholopaxy Hx of endoscopy Social History Smoking/Tobacco Use Status: Former Tobacco Use Quit Date: 07/04/99 Smoking risk assessment performed?: Yes Alcohol Intake: former Drug use: Never Substance use type: does not use Housing: house Do you feel safe at home: Yes Do you feel safe in your relationship?: Yes
[2024-01-27] MEDS: Sulfameth/Trimeth DS TAB 1 TAB PO (16:55)
[2024-01-27 16:58] VITALS: BP 142/69; PULSE 64; RESP 18; TEMP 36.6; O2SAT 97
[2024-01-27 17:00] VITALS: BP 142/69; PULSE 64; RESP 18; TEMP 36.6; O2SAT 97
== END 2024-01-27 17:02 | disposition home or self-care (01) ==
PROVIDERS: Emergency Medicine; Emergency Provider Student in an Organized Health Care Education/Training Program
DX: R30.0 Dysuria (principal); R31.9 Hematuria, unspecified; N39.0 Urinary tract infection, site not specified
CPT/HCPCS: 87077; 99283; 81003; 81015; 87086; 87186

== ENCOUNTER 2024-02-10 16:13 | Emergency (ER) | payer MEDICARE, SELFPAY ==
[2024-02-10 16:14] VITALS: BP 134/75; PULSE 74; RESP 18; TEMP 36.2; O2SAT 98
[2024-02-10 16:17] VITALS: BP 134/75; PULSE 74; RESP 18; TEMP 36.2; O2SAT 98
--- NOTE | 2024-02-10 16:28 | W.ED.GENAD ---
Discharge Plan Disposition Patient Disposition: Home Discharge Details Clinical Impression: Hematuria Primary Care Provider: Unknown,Unknown ED Provider: Chava Zavala Home Meds and New Rx's Prescriptions: New ciprofloxacin HCl 500 mg tablet 500 mg PO BID 7 Days Qty: 14 0RF No Action tamsulosin [Flomax] 0.4 mg capsule 0.8 mg PO DAILY Qty: 180 3RF Rx Instructions: Note increase dosage. Take after supper meal Discharge Instructions Instructions: Blood in Urine (Hematuria), Adult ED Additional Instructions: Please follow with your primary care physician as well as urology team. Return to the emergency department for any worsening symptoms HPI General Date/Time Provider Initiated Documentation: 02/10/24 16:20. HPI Narrative: 73-year-old male history of recurrent UTIs, self-catheterization, presents with blood-tinged urine. Not passing clots. Able to void. Related Data Home Medications ?Medication ?Instructions ?Recorded ?Confirmed tamsulosin 0.4 mg capsule (Flomax) 0.8 mg (2 x 0.4 mg) PO DAILY #180 12/27/23 02/10/24 caps ciprofloxacin HCl 500 mg tablet 500 mg PO BID 7 days #14 tabs 02/10/24 Previous Rx's ?Medication ?Instructions ?Recorded tamsulosin 0.4 mg capsule (Flomax) 0.8 mg (2 x 0.4 mg) PO DAILY #180 12/27/23 caps ciprofloxacin HCl 500 mg tablet 500 mg PO BID 7 days #14 tabs 02/10/24 Allergies Allergy/AdvReac Type Severity Reaction Status Date / Time No Known Allergies Allergy Verified 02/10/24 16:17 General Stated Complaint: Urinary YA: 3 Exam Narrative Exam Narrative: Rest comfortably no acute distress Moist mucous membranes tongue secretions Speaking full sentences no respiratory distress Ambulatory moving all extremities without deficit Course Vital Signs Vital signs: Vital Signs Temperature 36.2 C L 02/10/24 16:14 Pulse 74 02/10/24 16:14 Respiratory Rate 18 02/10/24 16:14 Blood Pressure 134/75 02/10/24 16:14 Pulse Oximetry 98 02/10/24 16:14 Temperature 36.2 C L 02/10/24 16:17 Temperature Source Temporal Artery Scan 02/10/24 16:17 Pulse 74 02/10/24 16:17 Respiratory Rate 18 02/10/24 16:17 Respiratory Effort Normal, Non-Labored 02/10/24 16:18 Blood Pressure 134/75 02/10/24 16:17 Blood Pressure Position Sitting 02/10/24 16:17 Pulse Oximetry 98 02/10/24 16:17 Oxygen Delivery Method Room Air 02/10/24 16:17 Oxygen Flow Rate 0 02/10/24 16:17 Medical Decision Making 73-year-old male history of BPH, chronic self-catheterization due to incomplete voiding presents with blood-tinged urine, not passing clots, denies fevers chills abdominal pain back pain or systemic signs of illness. Patient is afebrile nontoxic clinically stable. Patient will provide sample for urinalysis. Consider recurrent UTI 18: 55 patient resting on room no acute distress. Evidence of UTI and hematuria. Discussed with patient the possibility of chronic colonization given his frequent catheterization, offered to wait and see if we need to start antibiotics pending culture however patient would like to initiate antibiotics as he finds that treating will improve his hematuria. Review of most recent urine cultures show susceptibility to ciprofloxacin. Patient described his home catheterization technique which sounds appropriate and sterile. Patient be given follow-up with urology team. Quality:SDOH Health Related Social Needs: No Data to Display PFSH All Active Problems (Updated 02/10/24 @ 18:57 by Chava Zavala MD) Hematuria (Acute) Complicated UTI (urinary tract infection) (Acute) Incomplete emptying of bladder due to benign prostatic hyperplasia (Acute) Acute urinary retention (Acute) Elevated PSA (Acute) Bladder stones (Acute) Surgical History Hx of cystoscopy 02/17 [facility]; [facility] [place] 02/25 cystolitholopaxy Hx of endoscopy Social History Smoking/Tobacco Use Status: Former Tobacco Use Quit Date: 07/04/99 Smoking risk assessment performed?: Yes Alcohol Intake: former Drug use: Never Substance use type: does not use Housing: house Do you feel safe at home: Yes Do you feel safe in your relationship?: Yes
[2024-02-10 17:58] LABS: Bilirubin Negative (Negative); Blood Large (Negative); Clarity Cloudy (Clear); Glucose Negative (Negative); Ketones Negative (Negative); Leukocyte Esterase Large (Negative); Nitrite Negative (Negative); Specific Gravity 1.015 (1.005-1.025); Urobilinogen 0.2 mg/dL (Up to 0.2)
[2024-02-10 18:06] LABS: RBC >50 HPF (0-2)
[2024-02-10 18:07] LABS: Bacteria Few HPF (Negative); C & S Indicated? Yes; Casts Negative LPF (Negative); Crystals Negative HPF (Negative); Epithelial Cells Few HPF (Negative); Mucus Negative (Negative)
[2024-02-10] MEDS: Ciprofloxacin 500 MG TAB PO (19:18)
--- NOTE | 2024-02-11 07:43 | NUR.NOTE ---
Accessed Pt chart to obtain the name of the new medicine pt was prescribed. Pt was wanting to get one pill to get him thru until the pharmacy opens. Pt was told that it was only a few hours until pharmacy is open and it will do no harm per Nicolle.
== END 2024-02-10 19:18 | disposition home or self-care (01) ==
PROVIDERS: Emergency Provider Emergency Medicine
DX: R31.9 Hematuria, unspecified (principal); N40.0 Benign prostatic hyperplasia without lower urinary tract symptoms; Z87.891 Personal history of nicotine dependence
CPT/HCPCS: 87077; 99283; 81003; 81015; 87086; 87186

== ENCOUNTER → 2024-02-14 08:04 | Outpatient (BNVA) | payer MEDICARE, SELFPAY | PROVIDERS: Visit Provider Nurse Practitioner Gerontology | DX: N40.1 Benign prostatic hyperplasia with lower urinary tract symptoms (principal); R33.8 Other retention of urine; R31.9 Hematuria, unspecified; N21.0 Calculus in bladder; R97.20 Elevated prostate specific antigen [PSA] | CPT/HCPCS: 99214 ==

== ENCOUNTER 2024-04-12 01:16 | Outpatient (CLI) | payer MEDICARE, SELFPAY ==
--- NOTE | 2024-04-12 12:53 | DI.US_ITS ---
Exam(s) US RENAL EXAM: US RENAL CLINICAL HISTORY: monitoring bladder stones ,? hydro,? retention,HEMATURIA TECHNIQUE: Ultrasound of both kidneys performed using standard protocol. COMPARISON: CT CT ABDOMEN PELVIS WO from 02/23/2023 FINDINGS: RIGHT KIDNEY: Measures 11 cm in length. There is a 3.6 x 3.1 cm cyst lateral cortex. Normal cortical thickness and corticomedullary differentiation .No solid masses No intrarenal calculi nor hydronephrosis. LEFT KIDNEY: Measures 9.7 cm in length. There is a 1.3 x 1.2 cm cyst in superior pole and there is a 2.[address] in the inferior pole. Normal cortical thickness and corticomedullary differentiaion. No solids m asses. No intrarenal calculi nor hydonephrosis. URINARY BLADDER: Prevoid volume is 49 cc. Patient apparently self catheterized just prior to this exam. Postvoid volume is cc There is diffuse thickening of the urinary bladder wall to proximally 1 cm thickness there are a few shadowing calculi evident in the urinary bladder of the largest measuring 1.5 cm. Number of calculi in the urinary bladder appears less in number than on the CT scan of February 2023. Ureterovesical jets: Both not visualized. IMPRESSION: 1. Bilateral benign cysts. No solid renal masses. No obvious intrarenal calculi per 2. Calculi again noted in the urinary bladder lumen (previously present Schwartz catheter has been russ faustino. There is also significant uniform thickening of the urinary bladder wall evident. No discrete focal bladder lesions identified on these images. DATA REPOSITORY:
== END 2024-04-12 01:36 ==
LOC: DI 01:16
PROVIDERS: Visit Provider Nurse Practitioner Gerontology
DX: N20.0 Calculus of kidney (principal)
CPT/HCPCS: 76770

== ENCOUNTER 2024-04-25 15:21 | Outpatient (CLI) | payer MEDICARE, SELFPAY ==
[2024-04-26 20:58] LABS: PSA, Screening 4.9 ng/mL (<=6.5)
== END 2024-04-25 15:22 | disposition home or self-care (01) ==
LOC: LBO 15:21
PROVIDERS: Visit Provider Nurse Practitioner Gerontology
DX: N40.1 Benign prostatic hyperplasia with lower urinary tract symptoms (principal); N13.8 Other obstructive and reflux uropathy; R39.9 Unspecified symptoms and signs involving the genitourinary system; N21.0 Calculus in bladder; R33.9 Retention of urine, unspecified; R97.20 Elevated prostate specific antigen [PSA]
CPT/HCPCS: 36415; 84153

== ENCOUNTER → 2024-10-25 14:45 | Outpatient (BNVA) | payer MEDICARE, SELFPAY | PROVIDERS: Visit Provider Nurse Practitioner Gerontology | DX: N21.0 Calculus in bladder (principal); N40.1 Benign prostatic hyperplasia with lower urinary tract symptoms; R33.9 Retention of urine, unspecified; R97.20 Elevated prostate specific antigen [PSA] | CPT/HCPCS: 51798; 99214 ==

== ENCOUNTER 2025-04-24 01:06 | Outpatient (CLI) | payer MEDICARE, SELFPAY ==
--- NOTE | 2025-04-24 08:15 | DI.US_ITS ---
Exam(s) US RENAL EXAM: US RENAL CLINICAL HISTORY: monitoring bladder stones,incomplete emptying bladder,elevated psa,n40.1. TECHNIQUE: Griffin scale imaging and color doppler were used. COMPARISON: CT CT ABDOMEN PELVIS WO from 02/23/2023 XA XR RETROGRADE IN OR from 03/28/2023 US US RENAL from 04/12/2024 FINDINGS: Right kidney: 11.1cm Echogenicity: Normal Hydronephrosis: No Cyst or mass: 3.8 centimeter simple cyst mid pole Nephrolithiasis: No Left kidney: 10.2cm Echogenicity: Normal Hydronephrosis: No Cyst or mass: 2.8 centimeter cyst lower pole Nephrolithiasis: No Bladder: The bladder is thick walled with innumerable trabeculations diverticulae. 2 bladder calculi are measured at 1.6 and 1.9 cm. Prevoid vol: 624 cc Postvoid vol: Not performed. Patient self catheterizes and was unable to void. Prostate volume enlarged at 127 cc. IMPRESSION: Two stones were demonstrated in the bladder. Thick walled and trabeculated bladder with elevated bladder volume of 624 cc. No hydronephrosis. DATA REPOSITORY:
== END 2025-04-24 01:26 ==
PROVIDERS: Visit Provider Nurse Practitioner Gerontology
DX: N40.1 Benign prostatic hyperplasia with lower urinary tract symptoms (principal); R97.20 Elevated prostate specific antigen [PSA]; N21.0 Calculus in bladder
CPT/HCPCS: 76770

== ENCOUNTER → 2025-05-21 08:53 | Outpatient (BNVA) | payer MEDICARE, SELFPAY | PROVIDERS: Visit Provider Nurse Practitioner Gerontology | DX: N21.0 Calculus in bladder (principal); N40.1 Benign prostatic hyperplasia with lower urinary tract symptoms; R33.9 Retention of urine, unspecified; R97.20 Elevated prostate specific antigen [PSA] | CPT/HCPCS: 99214 ==